=== PATIENT | female | born 1950 | race Caucasian/White ===

== ENCOUNTER 2020-07-20 17:36 | Outpatient (REF) | payer MEDICARE, SELFPAY | END 2020-07-20 17:37 | disposition home or self-care (01) | LOC: HO.LAB 17:36 | PROVIDERS: Visit Provider Internal Medicine | DX: Z20.828 Contact with and (suspected) exposure to other viral communicable diseases (principal) | CPT/HCPCS: C9803; U0003 ==

== ENCOUNTER 2020-08-03 15:44 | Outpatient (REF) | payer MEDICARE, SELFPAY | END 2020-08-03 15:45 | disposition home or self-care (01) | LOC: HO.LAB 15:44 | PROVIDERS: PCP Internal Medicine; Visit Provider Internal Medicine | DX: Z20.828 Contact with and (suspected) exposure to other viral communicable diseases (principal) | CPT/HCPCS: C9803; U0003 ==

== ENCOUNTER 2020-10-24 13:53 | Outpatient (REF) | payer MEDICARE, SELFPAY ==
--- NOTE | ~2020-10-24 | MM_ITS ---
EXAMINATION: MM SCREENING DIGITAL BREAST TOMOSYNTHESIS, BILATERAL CLINICAL INFORMATION: Screening. Asymptomatic. The lifetime risk of breast cancer based on the Tyrer-Cuzick Model is 3%. COMPARISON: Mammography: 05/11/2019, 04/15/2018, 04/08/2017 TECHNIQUE: Digital breast tomosynthesis is performed in both the craniocaudal and mediolateral oblique views along with computer-aided detection (CAD). Synthesized 2D images are generated from the tomosynthesis. FINDINGS: There are scattered areas of fibroglandular density (ACR BI-RADS breast composition Category b). Fibronodular parenchymal pattern is similar to prior exams. There is no developing density. There is no interval mass or architectural abnormality or abnormal calcifications. No significant changes from prior studies. MM/MM tomosynthesis screening BI IMPRESSION: No mammographic evidence of malignancy. ASSESSMENT: BI-RADS 1: Negative RECOMMENDATION: Routine annual mammography screening. This patient's information was entered into a reminder system with a target due date for their next mammogram.
== END 2020-10-24 13:54 | disposition home or self-care (01) ==
LOC: HO.MAMMO 13:53
PROVIDERS: Visit Provider Internal Medicine
DX: Z12.31 Encounter for screening mammogram for malignant neoplasm of breast (principal)
CPT/HCPCS: 77063; 77067

== ENCOUNTER 2020-12-05 09:37 | Day surgery (SDC) | payer MEDICARE, SELFPAY ==
--- NOTE | 2020-12-04 13:15 | HO.ANESPROP2 ---
Documented by User: Josefa Lacey 12/04/20 13:15 HPI - Anesthesia Eval Consult details Narrative: 69yo F for Upper Endoscopy [facility] Past Medical History Medical History Hill esophagus Depression Diverticulosis Elevated cholesterol HTN (hypertension) Osteoporosis Spastic bladder Surgical History Surgical History History of esophagogastroduodenoscopy (EGD) Hx of colonoscopy Hx of tubal ligation Social History Social History Smoking Status: Never smoker Use of substances other than those prescribed or required for medical reasons: No Advance Directives: No Advance Directives Information Provided: Yes Meds Allergies Allergy/AdvReac Type Severity Reaction Status Date / Time No Known Allergies Allergy Unverified 06/01/20 14:51 Home Medications Medication Instructions Recorded Confirmed Last Taken Type alendronate 1 tab PO QWEEK 12/04/20 12/04/20 Unknown History atorvastatin 1 tab PO BEDTIME 12/04/20 12/04/20 Unknown History ergocalciferol (vitamin D2) 1 cap PO QWEEK 12/04/20 12/04/20 Unknown History lisinopril 1 tab PO DAILY 12/04/20 12/04/20 Unknown History omeprazole 1 cap PO BID 12/04/20 12/04/20 Unknown History Exam Exam Date and Time: December 04, 2020 1315 Height,Weight and Vital Signs: Height 5 ft 1 in Weight 72.121 kg Assessment and Plan Assessment Anesthesia Assessment: Chart Reviewed Documented by User: Laura Albarran 12/05/20 11:09 [facility] Past Medical History Medical History Hill esophagus Depression Diverticulosis Elevated cholesterol HTN (hypertension) Osteoporosis Spastic bladder Family History Family history of problems with anesthesia: No Surgical History Surgical History History of esophagogastroduodenoscopy (EGD) Hx of colonoscopy Hx of tubal ligation History of Problems with Anesthesia: No Social History Social History Smoking Status: Never smoker Use of substances other than those prescribed or required for medical reasons: No Advance Directives: No Advance Directives Information Provided: Yes Meds Allergies Allergy/AdvReac Type Severity Reaction Status Date / Time No Known Allergies Allergy Unverified 06/01/20 14:51 Home Medications Medication Instructions Recorded Confirmed Last Taken Type alendronate 1 tab PO QWEEK 12/04/20 12/04/20 Unknown History atorvastatin 1 tab PO BEDTIME 12/04/20 12/04/20 Unknown History ergocalciferol (vitamin D2) 1 cap PO QWEEK 12/04/20 12/04/20 Unknown History lisinopril 1 tab PO DAILY 12/04/20 12/04/20 Unknown History omeprazole 1 cap PO BID 12/04/20 12/04/20 Unknown History Exam Height,Weight and Vital Signs: Vital Signs Temp Pulse Resp BP Pulse Ox 12/05/20 11:04 97.3 F 78 18 152/69 H 96 Airway Mallampati Class: II TM Dist: >3cm Neck ROM: Full Loose/Missing/Broken Teeth: Yes (Missing 1 tooth.) Heart: RRR Lungs: CTAB Assessment and Plan Assessment Anesthesia Assessment: Anesthesia Plan Discussed and Chart Reviewed Final Anesthetic Review NPO: Yes ASA Class: II Final Preanesthetic Review: No Changes in Pt Med Stat, Meds/Allgs Chart Reviewed, Consent Obtained/Reviewed and Anes Risks/Benef Reviewed Patient Risk: Low Procedure Risk: Low Assessment/Block/Sedation in SS: Assess/Block/Sedation-SS Anesthetic Plan Anesthetic Plan: MAC: Disposition: Standard PACU
[2020-12-05 11:04] VITALS: BP 152/69; PULSE 78; RESP 18; TEMP 36.3; O2SAT 96
[2020-12-05] MEDS: Lactated Ringers 1,000 ML 100 ML IVCONT (11:39)
--- NOTE | 2020-12-05 11:44 | MHC.SHP ---
Pre-Procedural Eval Section A The patient is an INPATIENT: No Changes since office visit: No Cold of Flu in the past 2 weeks, No New Medical Problems, No Changes in Medication and No Patient answered all questions The History & Physical has been completed within 30 days and I have reviewed it.: Yes Section B Chief Complaint: barretts Allergies: Allergies Allergy/AdvReac Type Severity Reaction Status Date / Time No Known Allergies Allergy Unverified 06/01/20 14:51 Plan I have reviewed the history and physical and performed a pertinent physical examination on my patient. No changes have occurred unless specified.
[2020-12-05 12:13] VITALS: BP 115/44; PULSE 72; RESP 14; TEMP 36.9; O2SAT 97
--- NOTE | 2020-12-05 12:13 | PM.OP ---
Brief Operative Note Date of Service: 12/05/20 Pre-op diagnosis: barretts Post-op diagnosis: same Procedure: egd Surgeon: Jasiel Coburn Estimated blood loss (mL): 3 Pathology: other (esophagus bxs) Condition: stable Disposition: PACU
[2020-12-05 12:28] VITALS: BP 137/72; PULSE 74; RESP 18; O2SAT 96
--- NOTE | 2020-12-05 12:50 | OP_ITS ---
SURGEON: Jasiel Coburn MD INDICATIONS: Hill's esophagus. PREOPERATIVE DIAGNOSIS: POSTOPERATIVE DIAGNOSIS: PROCEDURE PERFORMED: Upper endoscopy with biopsy. ESTIMATED BLOOD LOSS: COMPLICATIONS: ANESTHESIA: ASSISTANTS: SPECIMENS: MEDICATIONS: Monitored anesthesia care. DESCRIPTION OF PROCEDURE: History and physical performed. The risks and benefits of the procedure were explained to the patient. Informed consent was obtained and the patient was placed in the left lateral decubitus position. The Olympus video gastroscope was introduced into the esophagus, stomach, and duodenum. Examination was performed and the scope was removed. She tolerated the procedure well and was taken to recovery area in stable condition. FINDINGS: ESOPHAGUS: The esophagus showed a 2 cm length of Hill's esophagus without any raised lesions or ulcerated areas. Biopsies were obtained from the esophagus in all 4 quadrants at 32 cm and at 30 cm. There was a small hiatal hernia. STOMACH: The stomach showed no evidence of masses, ulcers, or polyps. DUODENUM: The bulb and second portion were normal. IMPRESSION: Hill's esophagus. RECOMMENDATION: Follow up the biopsy results. MD EMELY Smith/MODL / [id number]
== END 2020-12-05 12:56 | disposition home or self-care (01) ==
PROVIDERS: PCP Internal Medicine; Visit Provider Internal Medicine Gastroenterology
PROC: 0DJ08ZZ Inspection of Upper Intestinal Tract, Via Natural or Artificial Opening Endoscopic (ICD-10-PCS; CPT 43235; principal; 2020-12-05 10:50)
DX: K22.70 Barrett's esophagus without dysplasia (principal); K21.9 Gastro-esophageal reflux disease without esophagitis; K44.9 Diaphragmatic hernia without obstruction or gangrene; I10 Essential (primary) hypertension; M81.0 Age-related osteoporosis without current pathological fracture; Z79.899 Other long term (current) drug therapy
CPT/HCPCS: 43239; 88305

== ENCOUNTER 2021-06-07 08:31 | Outpatient (REF) | payer MEDICARE, SELFPAY ==
--- NOTE | ~2021-06-07 | MM_ITS ---
EXAMINATION: BONE DENSITOMETRY CLINICAL INDICATION: Vitamin D deficiency. Other disorder of bone. COMPARISON: Previous BD dated 10/23/2018 and baseline BD dated 08/18/2007. TECHNIQUE: Using a [employer] DXA System (software version: 13.1) manufactured by [employer], dual-energy x-ray absorptiometry was performed of the lumbar spine and left hip. The images are of good technical quality. Summary results are attached. FINDINGS: AP SPINE L1-L4: Current: BMD 0.952 g/cm2, Z-score -0.5, T-score -1.9, osteopenia, 3.8% increase from previous, 0.5% decrease from baseline (<5% change is not significant). Prior: BMD 0.917 g/cm2. Baseline: BMD 0.957 g/cm2. LEFT FEMUR, NECK: Current: BMD 0.963 g/cm2, Z-score 1.0, T-score -0.5, normal. Prior: BMD 0.946 g/cm2. Baseline: BMD 0.978 g/cm2. LEFT FEMUR, TOTAL: Current: BMD 1.008 g/cm2, Z-score 1.4, T-score 0.0, normal, 1.9% increase from previous, 0.2% increase from baseline (<5% change is not significant). Prior: BMD 0.989 g/cm2. Baseline: BMD 1.006 g/cm2. IDENTIFIED RISK FACTORS: Osteoporosis, renal, thiazide, menopause. HISTORY OF FRACTURE: None listed. MEDICATIONS: Vitamin D. MM/XR DEXA axial skeleton IMPRESSION: 1. DIAGNOSIS: Osteopenia based on the lowest T-score value of -1.9 in the lumbar spine applying World Health Organization criteria. 2. 10-YEAR FRACTURE RISK PREDICTION, FRAX: Major osteoporotic fracture (clinical spine, forearm, hip or shoulder) 4.4%. Hip fracture 0.4%. 3. Treatment Recommendations: NOF guidelines recommend consideration for treatment in postmenopausal women and men age 50 and older presenting with the following: -A hip or vertebral (clinical or morphometric) fracture. -T-score less than or equal to -2.5 at the femoral neck or spine after appropriate evaluation to exclude secondary causes. -Low bone mass at the hip or spine and a 10-year fracture probability by FRAX of greater than or equal to 3% for hip fracture or greater than or equal to 20% for major osteoporotic fracture based on the [place] adapted WHO algorithm. 4. Other Recommendations: All treatment decisions require clinical judgment and consideration of individual patient factors, including patient preferences, comorbidities, previous drug use, risk factors not captured in the FRAX model (e.g. frailty, falls, vitamin D deficiency, increased bone turnover, interval significant decline in bone density) and possible under or overestimation of fracture risk by FRAX. Additional medical evaluation for secondary cause of low bone mineral density may be appropriate. FUTURE SCAN RECOMMENDATION: People with diagnosed cases of osteoporosis or at high risk for fracture should have regular bone mineral density tests. For patients eligible for Medicare, routine testing is allowed once every 2 years. The testing frequency can be increased to one year for patients who have rapidly progressing disease, those who are receiving or discontinuing medical therapy to restore bone mass, or have additional risk factors.
== END 2021-06-07 08:32 | disposition home or self-care (01) ==
LOC: HO.MAMMO 08:31
PROVIDERS: PCP Internal Medicine; Visit Provider Internal Medicine
DX: Z13.820 Encounter for screening for osteoporosis (principal); M85.80 Other specified disorders of bone density and structure, unspecified site; E55.9 Vitamin D deficiency, unspecified; Z78.0 Asymptomatic menopausal state; Z79.899 Other long term (current) drug therapy
CPT/HCPCS: 77080

== ENCOUNTER 2021-11-07 11:54 | Outpatient (REF) | payer MEDICARE, SELFPAY ==
--- NOTE | ~2021-11-07 | MM_ITS ---
EXAMINATION: MM SCREENING DIGITAL BREAST TOMOSYNTHESIS, BILATERAL CLINICAL INFORMATION: Screening. Asymptomatic. The lifetime risk of breast cancer based on the Tyrer-Cuzick Model is 3%. COMPARISON: Mammography: 10/24/2020, 05/11/2019, 04/15/2018 TECHNIQUE: Digital breast tomosynthesis is performed in both the craniocaudal and mediolateral oblique views along with computer-aided detection (CAD). Synthesized 2D images are generated from the tomosynthesis. FINDINGS: The breasts are heterogeneously dense, which may obscure small masses (ACR BI-RADS breast composition Category c). There are no significant masses, abnormal calcifications, or other abnormalities. Breast tissue composition borders on average fibroglandular. Parenchymal pattern is similar to prior studies. No developing density or interval architectural abnormality. No significant changes. MM/MM tomosynthesis screening BI IMPRESSION: No mammographic evidence of malignancy. ASSESSMENT: BI-RADS 1: Negative RECOMMENDATION: Routine annual mammography screening. This patient's information was entered into a reminder system with a target due date for their next mammogram.
== END 2021-11-07 11:55 | disposition home or self-care (01) ==
LOC: HO.MAMMO 11:54
PROVIDERS: PCP Internal Medicine; Visit Provider Internal Medicine
DX: Z12.31 Encounter for screening mammogram for malignant neoplasm of breast (principal)
CPT/HCPCS: 77063; 77067

== ENCOUNTER 2022-11-11 08:29 | Outpatient (REF) | payer MEDICARE, SELFPAY ==
--- NOTE | ~2022-11-11 | MM_ITS ---
EXAMINATION: MM SCREENING DIGITAL BREAST TOMOSYNTHESIS, BILATERAL CLINICAL INFORMATION: Screening. Asymptomatic. The lifetime risk of breast cancer based on the Tyrer-Cuzick Model is 4%. COMPARISON: Mammography: 11/07/2021, 10/24/2020, 05/11/2019, 04/15/2018, 04/08/2017 TECHNIQUE: Digital breast tomosynthesis is performed in both the craniocaudal and mediolateral oblique views along with computer-aided detection (CAD). Synthesized 2D images are generated from the tomosynthesis. FINDINGS: The breasts are heterogeneously dense, which may obscure small masses (ACR BI-RADS breast composition Category c). No architectural abnormality or developing density or significant change from prior studies. Again, there is a 1 cm smooth benign oval asymmetry central inner right breast with mixed fibroglandular and fatty attenuation similar to multiple prior studies, likely chronic hamartoma. There are no significant masses, abnormal calcifications, or other abnormalities. There are scattered round and some vascular calcifications. No significant changes. MM/MM tomosynthesis screening BI IMPRESSION: No mammographic evidence of malignancy. ASSESSMENT: BI-RADS 2: Benign RECOMMENDATION: Routine annual mammography screening. This patient's information was entered into a reminder system with a target due date for their next mammogram.
== END 2022-11-11 08:30 | disposition home or self-care (01) ==
LOC: HO.MAMMO 08:29
PROVIDERS: PCP Internal Medicine; Visit Provider Internal Medicine
DX: Z12.31 Encounter for screening mammogram for malignant neoplasm of breast (principal)
CPT/HCPCS: 77063; 77067

== ENCOUNTER 2023-10-27 09:07 | Outpatient (REF) | payer MEDICARE, SELFPAY ==
[2023-10-27 12:42] LABS: Microalbum/Creatinine Ratio Ur 11.4 ug/mg cr (<30)
[2023-10-27 12:48] LABS: Anion Gap 15 (12-20); Blood Urea Nitrogen 15 mg/dL (9-16); Calcium 9.4 mg/dL (8.4-10.2); Carbon Dioxide 25 mmol/L (22-29); Chloride 106 mmol/L (96-108); Cholesterol 174 mg/dL (<200); Estimated Glomerular Filt Rate > 60; Glucose Random 107 mg/dL (60-115); HDL Cholesterol 48 mg/dL (>40); LDL Cholesterol Calculated 94 mg/dL (<100); Potassium 3.8 mmol/L (3.3-5.1); Sodium 142 mmol/L (135-145); TSH reflex Free T4 1.48 uIU/mL (0.32-4.0); Triglycerides 163 mg/dL (<150); Vitamin D 25-OH Total 25.3 ng/mL (>30)
[2023-10-27 13:17] LABS: Reflex LDLD? No
== END 2023-10-27 09:08 | disposition home or self-care (01) ==
LOC: HO.HHCL 09:07
PROVIDERS: Visit Provider Internal Medicine
DX: I10 Essential (primary) hypertension (principal); R73.01 Impaired fasting glucose
CPT/HCPCS: 36415; 80048; 80061; 82043; 82306; 82570; 84443

== ENCOUNTER 2023-11-18 07:38 | Outpatient (REF) | payer MEDICARE, SELFPAY ==
--- NOTE | ~2023-11-18 | MM_ITS ---
EXAMINATION: MM SCREENING DIGITAL BREAST TOMOSYNTHESIS, BILATERAL CLINICAL INFORMATION: Screening. Asymptomatic. COMPARISON: Mammography: 11/11/2022, 11/07/2021, 10/24/2020, 05/11/2019, 04/15/2018, 04/08/2017. TECHNIQUE: Digital breast tomosynthesis is performed in both the craniocaudal and mediolateral oblique views along with computer-aided detection (CAD). Synthesized 2D images are generated from the tomosynthesis. FINDINGS: The breasts are heterogeneously dense, which may obscure small masses (ACR BI-RADS breast composition Category c). Parenchyma is heterogeneously dense and again somewhat nodular. This is unchanged. Again there is an approximate 1 cm smooth circumscribed benign oval mass central inner right breast consistent with a hamartoma with both soft tissue and fatty attenuation. This is stable and benign. There are scattered rounded benign and vascular calcifications. There is been no aggressive change. There are no masses, regions of architectural distortion, or suspicious grouped calcifications in either breast. There is no skin or axillary abnormality. MM/MM tomosynthesis screening BI IMPRESSION: No mammographic evidence of malignancy. Stable benign findings. ASSESSMENT: BI-RADS BI-RADS 2 - Benign Findings RECOMMENDATION: Routine annual mammography screening. 1 year F/U This examination should not preclude the clinical evaluation of a suspicious palpable abnormality. This patient's information was entered into a reminder system with a target due date for their next mammogram.
== END 2023-11-18 07:39 | disposition home or self-care (01) ==
LOC: HO.MAMMO 07:38
PROVIDERS: PCP Internal Medicine; Visit Provider Internal Medicine
DX: Z12.31 Encounter for screening mammogram for malignant neoplasm of breast (principal)
CPT/HCPCS: 77063; 77067

== ENCOUNTER → 2023-11-18 08:00 | Outpatient (BNV) | payer MEDICARE, SELFPAY | PROVIDERS: PCP Internal Medicine; Visit Provider Radiology Diagnostic Radiology | DX: Z12.31 Encounter for screening mammogram for malignant neoplasm of breast (principal) | CPT/HCPCS: 77063; 77067 ==

== ENCOUNTER 2023-11-25 07:52 | Outpatient (REF) | payer MEDICARE, SELFPAY ==
--- NOTE | ~2023-11-25 | MM_ITS ---
EXAMINATION: BONE DENSITOMETRY CLINICAL INDICATION: Osteoporosis. COMPARISON: Previous BD dated 06/07/2021 and baseline BD dated 08/18/2007. TECHNIQUE: Using a [employer] DXA System (software version: 13.1) manufactured by [employer], dual-energy x-ray absorptiometry was performed of the lumbar spine and left hip. The images are of good technical quality. Summary results are attached. FINDINGS: LEFT FEMUR, NECK: Current: BMD 0.894 g/cm2, Z-score 0.8, T-score -1.0, normal. Prior: BMD 0.963 g/cm2. Baseline: BMD 0.978 g/cm2. LEFT FEMUR, TOTAL: Current: BMD 1.010 g/cm2, Z-score 1.6, T-score 0.0, normal, 0.2% increase from previous, 0.4% increase from baseline (<5% change is not significant). Prior: BMD 1.008 g/cm2. Baseline: BMD 1.006 g/cm2. AP SPINE L1-L4: Current: BMD 0.977 g/cm2, Z-score 0.0, T-score -1.7, osteopenia, 2.6% increase from previous, 2.1% increase from baseline (<5% change is not significant). Prior: BMD 0.952 g/cm2. Baseline: BMD 0.957 g/cm2. IDENTIFIED RISK FACTORS: Menopause. HISTORY OF FRACTURE: None listed. MEDICATIONS: Vitamin D, bisphosphonate. MM/XR DEXA axial skeleton IMPRESSION: 1. DIAGNOSIS: Osteopenia based on the lowest T-score value of -1.7 in the lumbar spine applying World Health Organization criteria. 2. 10-YEAR FRACTURE RISK PREDICTION, FRAX: Not performed in this patient on estrogen or bone building treatments. 3. Treatment Recommendations: NOF guidelines recommend consideration for treatment in postmenopausal women and men age 50 and older presenting with the following: -A hip or vertebral (clinical or morphometric) fracture. -T-score less than or equal to -2.5 at the femoral neck or spine after appropriate evaluation to exclude secondary causes. -Low bone mass at the hip or spine and a 10-year fracture probability by FRAX of greater than or equal to 3% for hip fracture or greater than or equal to 20% for major osteoporotic fracture based on the [place] adapted WHO algorithm. 4. Other Recommendations: All treatment decisions require clinical judgment and consideration of individual patient factors, including patient preferences, comorbidities, previous drug use, risk factors not captured in the FRAX model (e.g. frailty, falls, vitamin D deficiency, increased bone turnover, interval significant decline in bone density) and possible under or overestimation of fracture risk by FRAX. Additional medical evaluation for secondary cause of low bone mineral density may be appropriate. FUTURE SCAN RECOMMENDATION: People with diagnosed cases of osteoporosis or at high risk for fracture should have regular bone mineral density tests. For patients eligible for Medicare, routine testing is allowed once every 2 years. The testing frequency can be increased to one year for patients who have rapidly progressing disease, those who are receiving or discontinuing medical therapy to restore bone mass, or have additional risk factors.
== END 2023-11-25 07:53 | disposition home or self-care (01) ==
LOC: HO.MAMMO 07:52
PROVIDERS: PCP Internal Medicine; Visit Provider Internal Medicine
DX: Z13.820 Encounter for screening for osteoporosis (principal); M81.0 Age-related osteoporosis without current pathological fracture; Z78.0 Asymptomatic menopausal state
CPT/HCPCS: 77080

== ENCOUNTER 2024-03-01 09:23 | Outpatient (REF) | payer MEDICARE, SELFPAY ==
[2024-03-01 11:42] LABS: Anion Gap 11 (12-20); Blood Urea Nitrogen 20 mg/dL (9-16); Calcium 8.8 mg/dL (8.4-10.2); Carbon Dioxide 27 mmol/L (22-29); Chloride 107 mmol/L (96-108); Estimated Glomerular Filt Rate > 60; Glucose Random 110 mg/dL (60-115); Potassium 3.8 mmol/L (3.3-5.1); Sodium 141 mmol/L (135-145)
== END 2024-03-01 09:24 | disposition home or self-care (01) ==
LOC: HO.HHCL 09:23
PROVIDERS: Visit Provider Internal Medicine
DX: I10 Essential (primary) hypertension (principal)
CPT/HCPCS: 36415; 80048

== ENCOUNTER 2024-11-03 08:05 | Outpatient (REF) | payer MEDICARE, SELFPAY ==
--- OUTSIDE RECORDS SUMMARY | 2024-11-03 08:12 | XMS_ITS | Encounter Summary ---
Author Organization [employer] [facility] Address [address] [place] [address] Care Team Providers Care Structural Steel Painter Name Role Phone Kathy Pryor MD Primary Care Provider + Encounter Details Date Type Department Care Team (Latest Contact Info) Description 11/24/2019 Abstract [facility] CONVERSIONS Dental, Provider, DDS Social History Tobacco Use Types Packs/Day Years Used Date Smoking Tobacco: Never Assessed Comments Unknown Sex and Gender Information Value Date Recorded Sex Assigned at Female 07/15/2022 10:16 AM EDT Legal Sex Female 10:16 AM EDT Gender Identity Female 07/15/2022 10:16 AM EDT Sexual Orientation Choose not to disclose 2021 10:16 AM EDT documented as of this encounter Plan of Treatment Upcoming Encounters Date Type Department Care Team (Late st Contact Info) Description 11/17/2024 11:30 AM EST Office Visit [facility] MEDICINE [address] [place] [address] Kathy Pryor MD [address] [place] [address] documented as of this encounter Visit Diagnoses Not on filedocumented in this encounter Care Teams Structural Steel Painter Relationship Specialty Start Date End Date Kathy Pryor MD [address] [place] [address] PCP - General Family Medicine 06/28/16 documented as of this encounter
--- OUTSIDE RECORDS SUMMARY | 2024-11-03 08:13 | XMS_ITS | Encounter Summary ---
Author Organization [employer] [facility] Address [address] [place] [address] Care Team Providers Care Business Line Controller Name Role Phone Kathy Pryor MD Primary Care Provider + Encounter Details Date Type Department Care Team (Late st Contact Info) Description 09/26/2022 Orders Only [facility] MEDICINE [address] [place] [id number] Lenora Norman LPN Social History Tobacco Use Types Packs/Day Years [...] 11/17/2024 11:30 AM EST Office Visit [facility] MEDICINE [address] [place] [address] Kathy Pryor MD [address] [place] [id number] documented as of this encounter Visit Diagnoses Not on filedocumented in this encounter Care Teams Business Line Controller Relationship Specialty Start Date End Date Kathy Pryor MD [address] [place] [phone] PCP - General Family Medicine 06/28/16 documented as of this encounter
--- OUTSIDE RECORDS SUMMARY | 2024-11-03 08:13 | XMS_ITS ---
Author Organization [facility] Address [address] [place] [address] Care Team Providers Care Antique Collector Name Role Phone Konstantin CHRISTINA, Kathy Primary Care Provider Jasiel Tejeda Jr Unavailable Encounters Encounter Location Date Provider Diagnosis [facility] [address] [place] [address] 10/18/2024 Jasiel Coburn Jr PLAN OF TREATMENT Next Appt Details Provider Name:Jasiel palacio Jr, 11/24/2024 11:00:00 AM, [address] [place] [address], [address], [place], [address], Provider Name:Jasiel palacio Jr, 01/31/2025 11:20:00 AM, [address] [place] [address], [address], [place], [address],
--- OUTSIDE RECORDS SUMMARY | 2024-11-03 08:13 | XMS_ITS ---
Author Organization [facility] Address [address] [place] [address] Care Team Providers Care Hearing Aid Fitter Name Role Phone Konstantin CHRISTINA, Kathy Primary Care Provider Unavail colin Coburn Jr, Jasiel Unavailable [phone] REASON FOR VISIT Patient presents today for toussaint's esophagus Encounters Encounter Location Date Provider Diagnosis [facility] [address] [place] [address] 07/19/2024 Jasiel Coburn Jr PLAN OF TREATMENT Next Appt Details Provider Name:Jasiel palacio Jr, 11/24/2024 11:00:00 AM, [address] [place] [address], [address], [place], [address], Provider Name:Jasiel palacio Jr, 01/31/2025 11:20:00 AM, [address] [place] [address], [address], [place], [address],
--- OUTSIDE RECORDS SUMMARY | 2024-11-03 08:13 | XMS_ITS | Encounter Summary ---
Author Organization [employer] Address [address] [facility] [address] h [address] [place] [phone] Care Team Providers Care Electronic Specialist Name Role Phone Kathy Pryor MD Primary Care Provider + Encounter Details Date Type Department Care Team (Late Contact Info) Description 03/05/2023 Abstract [facility] [address] [place] [address] [phone] Kathy Pryor MD [address] [place] [address] [phone] Social History Tobacco Use Types Packs/Day Years Used Date Smoking Tobacco: Never Smokeless Tobacco: Never Alcohol Use Standard Drinks/Week Comments Never 0 (1 standard drink = 0.6 oz pur e alcohol) Depression Answer Date Recorded Patient Health Questionnaire-2 Score 0 01/03/2023 Comments Unknown Sex and Gender Information Value Date Recorded Sex Assigned at Female 07/15/2022 10:16 AM EDT Legal Sex Female 10:16 AM EDT Gender Identity Female 07/15/2022 10:16 AM EDT Sexual Orientation Choose not to disclose 2021 10:16 AM EDT COVID-19 Exposure Response Date Recorded In the last 10 days, have yo u been in contact with someone who was confirmed or suspected to have Coronavirus/COVID-19? No / Unsure 02/06/2023 10:44 AM EDT documented as of this encounter Plan of Treatment Upcoming Encounters Date Type Department Care Team (Late Contact Info) Description 11/17/2024 11:30 AM EST Office Visit [facility] [address] [place] [address] [phone] Kathy Pryor MD [address] [place], [place] [phone] documented as of this encounter Procedures Procedure Name Priority Date/Time Associated Diagnosis Comments HM COLONOSCOPY Routine 06/03/2008 10:00 AM EDT documented in this encounter Results * Hm Colonoscopy (06/03/2008 10:00 AM EDT) Colonoscopy Normal Normal Narrative Janice Albarado - 06/03/2008 10:00 AM EDT Recommended 10 year follow up us Historical Provider [facility] MAINTENANCE Edited Result - Final documented in this encounter Visit Diagnoses Not on filedocumented in this encounter Care Teams Electronic Specialist Relationship Specialty Start Date End Date Kathy Pryor MD [address] [place] [phone] PCP - General Family Medicine 06/28/16 documented as of this encounter
--- OUTSIDE RECORDS SUMMARY | 2024-11-03 08:13 | XMS_ITS | Encounter Summary ---
Author Organization [employer] Address [address] [facility] [address] [place] [address] Care Team Providers Care Brand Development Manager Name Role Phone Kathy Pryor MD Primary Care Provider + Encounter Details Date Type Department Care Team (Late st Contact Info) Description 01/28/2024 Orders Only [facility] [address] [place], [place] [phone] ProviderSebastian MD Social History Tobacco Use Types Packs/Day Years Used Date Smoking Tobacco: Never Smokeless Tobacco: Never Alcohol Use Standard Drinks/Week Comments Never 0 (1 standard drink = 0.6 oz pur e alcohol) Housing Stability Answer Date Recorded What is your housing situation today? I have rita jacinto 07/26/[address] you li ve. Do you have problems with any of the following? None of the above 07/26/2023 Food Insecurity Answer Date Recorded Within the past 12 months, y ou worried that your food would run out before you got money to buy more: Never True 07/26/2023 Within the past 12 months,th e food you bought just didn't last and you didn't have enough money to get more: Never True 07/2023 Transportation Answer Date Recorded In the past 12 months, has l ack of transportation kept you from medical appts, meetings, work or from getting things needed for daily living? No 07/26/2023 Utilities Answer Date Recorded In the past 12 months, has t he electric, gas, oil or water company threatened to shut off services in your home? No 07/26/2023 Depression Answer Date Recorded Patient Health Questionnaire-2 [...] Description 11/17/2024 11:30 AM EST Office Visit [facility] [address] [place] [address] Kathy Pryor MD [address] [place] [address] documented as of this encounter Procedures Procedure Name Priority Date/Time Associated Diagnosis Comments HM COLONOSCOPY Routine 11/13/2018 7:12 AM EST documented in this encounter Results * Hm Colonoscopy (11/13/2018 7:12 AM EST) Historical Provider HEALTH MAINTENANCE Final Result documented in this encounter Visit Diagnoses Not on filedocumented in this encounter Care Teams Brand Development Manager Relationship Specialty Start Date End Date Kathy Pryor MD [address] [place] [phone] PCP - General Family Medicine 06/28/16 documented as of this encounter
--- OUTSIDE RECORDS SUMMARY | 2024-11-03 08:13 | XMS_ITS | Clinical Summary ---
Author Organization [employer] Address [address] [facility] 7t [place] [address] Care Team Providers Care Mobile Web Application Developer Name Role Phone Kathy Pryor MD Primary Care Provider + Allergies No known active allergies Medications Calcium Carb-Cholecalcife rol (Oyster Shell Calcium w/D) 500-5 MG-MCG tabletIndications :Age related osteoporosis, unspecified pathological fracture presence TAKE 1 TABLET BY MOUTH TWICE DAILY 180 tablet 1 4 Active lisinopril 40 MG tabletIndications :Primary hypertension TAKE 1 TABLET BY MOUTH EVERY DAY 90 tablet 3 4 Active atorvastatin (Lipitor) 40 MG tablet TAKE 1 TABLET BY MOUTH AT BEDTIME 90 tablet 3 4 Active alendronate (Fosamax) 70 MG tablet TAKE 1 TABLET BY MOUTH EVERY WEEK IN THE MORNING AND 30 MINUTES BEFORE FIRST FOOD OR BEVERAGE OR MEDICATION OF DAY 12 tablet 3 4 Active omeprazole (PriLOSEC) [address] capsuleIndication s:Gastroesophagea l reflux disease, unspecified whether esophagitis present TAKE 1 CAPSULE BY MOUTH TWICE DAILY 180 capsule 1 5 Active Active Problems Problem Noted Date Diagnosed Date Grief 09/25/2023 Assessment & Plan (11/06/2023 11:31 AM EST): Coping well, has support of family and friends in the community She's able to reach out for safety Assessment & Plan (09/25/2023 12:10 PM EST): Discussed about coping mechanics including distractions, exercise, healthy meals. She's sleeping well. She has team number to call PRN FU 6 wks Electrocardiogram abnormal 09/24/202309/24 Prediabetes 01/01/2023 Osteopenia 01/01/2023 Assessment & Plan (03/08/2024 10:19 AM EDT): Complete 6mo of Vit D supplementation. Advised outdoor exercsie. Continue Calcium. Check Vit D levels prior to next appt. Assessment & Plan (12/05/2023 10:46 AM EDT): Recent BMD shows improvement of osteoporosis to osteopenia Continue Vit D to complete 6 m Start calcium Counseled regarding risk of falls and fractures. Primary hypertension 01/01/2023 Assessment & Plan (03/08/2024 5:27 PM EDT): Controlled. Compliant w/meds Continue lisinopril 40mg Counseled re low salt diet/increase moderate physical activity. Check home BP BIW and prn CP/THOMAS/MEMBRENO Non smoking patient. Assessment & Plan (12/05/2023 10:45 AM EDT): Uncontrolled Increase lisinopril 40mg and fu BP in 3 m Counseled re low salt diet/increase moderate physical activity. Check home BP BIW and prn CP/THOMAS/MEMBRENO Non smoking patient. Assessment & Plan (11/06/2023 11:30 AM EST): Uncontrolled, will increase lisinopril to 20 mg and FU in 4 wks Counseled re low salt diet/increase moderate physical activity. Check home BP BIW and prn CP/THOMAS/MEMBRENO Non smoking patient. Assessment & Plan (09/25/2023 12:10 PM EST): Borderline, repeated is 160/80 Cont lisinopril for now and check BP at home twice /wk Counseled re low salt diet/increase moderate physical activity. Non smoking patient. FU 6 wks w/ labs Assessment & Plan (01/03/2023 12:28 PM EDT): Controlled, BP is at goal. Continue lisinopril 10mg and order labs Counseled re low salt diet/increase moderate physical activity. Check home BP BIW and prn CP/THOMAS/MEMBRENO Non smoking patient. FU with me in 2 months Impacted cerumen 10/12/2018 Pre-hypertension 05/03/2013 Dyslipidemia 07/14/2012 Hill's esophagus 06/17/2012 Impaired fasting glucose 06/17/2012 Assessment & Plan (09/25/2023 12:10 PM EST): Counseled re more frequent low calorie/carb meals. Check fgstk daily Encouraged physical activity as tolerated. Assessment & Plan (01/03/2023 12:27 PM EDT): A1C is at goal Continue off medications for now Counseled re more frequent low calorie/carb meals. Encouraged physical activity as tolerated. Order labs and FU with me in 2 months Declined podiatry referral Optometry evaluation up to date Chronic interstitial cystitis 06/17/2012 Vitamin D deficiency 06/17/2012 Assessment & Plan (03/08/2024 5:28 PM EDT): Complete 6mo rx, advised re outdoor exercise. Assessment & Plan (11/06/2023 11:30 AM EST): Continue vit d for the next 3 months Resolved Problems Problem Noted Date Diagnosed Date Resolved Date Osteoporosis 06/17/2012 12/05/2023 Assessment & Plan (11/06/2023 11:33 AM EST): Continue fosamax and vit d for the next 3 m Order BDD and BMP Assessment & Plan (01/03/2023 12:27 PM EDT): will obtain report of last BMD test and scheduled fu Dexascan if needed Continue fosamax + calcium for now Encounters Date Type Department Care Team Description 09/28/2024 Patient Outreach [facility] [address] [place] [address] Kathy Pryor MD Pre-visit Planning (SDOH screening negative and tobacco screening negative) 09/22/2024 Refill [facility] [address] [place] [address] Kathy Pryor MD Gastroesophageal reflux disease, unspecified whether esophagitis present from Last 3 Months Immunizations Name Administration Dates Next Due Hep B, adult 06/14/2008,02/17/2008,01/18/2008 Influenza High-dose Quadriva lent Preservative Free 06/17/2023,06/16/2022,05/17/2020 Influenza Quadrivalent Adjuvanted 06/03/2021 Influenza injectable quadriv alent IIV4 with preservative 07/08/2016 Influenza injectable quadriv alent preservative free 08/19/2018 Influenza, High Dose Seasona l, Preservative Free 06/19/2017,08/02/2015 Influenza, IIV3, injectable 08/01/2021,1 ,05/26/2018,06/04,05/30/2009,11/08/2008,07/14/2007 ,09/18/2006,10/16/2005 Influenza, Split (incl. nikkie fied surface antigen) 06/14/2013,06/17/2012 Moderna Covid-19 Vaccine 12+ 01/29/2022 Pfizer Covid-19 Vaccine 12+ Bivalent 06/17/2022 Pneumococcal Conjugate PCV 13 10/08/2016 Pneumococcal Polysaccharide PPSV23 12/05/2022 TD (adult), 2 Lf tetanus tox oid, preservative free, adsorbed 04/27/2007 Tdap 02/06/2023,02/12/2012 Zoster, Recombinant 02/06/2023,12/05/2022,2018 Family History Medical History Relation Name Comments Diabetes type II Brother Stroke Father Diabetes Mother Hypertension Mother Hypertension Sister Relation Name Status Comments Brother Father Mother Sister Social History Tobacco Use Types Packs/Day Years Used Date Smoking Tobacco: Never Smokeless Tobacco: Never Tobacco Cessation:Counseling Given: Not Answered Alcohol Use Standard Drinks/Week Comments Never 0 (1 standard drink = 0.6 oz pur e alcohol) Depression Answer Date Recorded Patient Health Questionnaire-9 Score 0 03/08/2024 Patient Health Questionnaire-9 Score 0 03/08/2024 Last PHQ-9: Questionnaire Data Not on file 0 03/08/2024 Housing Stability Answer Date Recorded What is your housing situation today? I have rita casey 03/08/[address] you li ve. Do you have problems with any of the following? None of the above 03/08/2024 Food Insecurity Answer Date Recorded Within the past 12 months, y ou worried that your food would run out before you got money to buy more: Never True 03/08/2024 Within the past 12 months,th e food you bought just didn't last and you didn't have enough money to get more: Never True Transportation Answer Date Recorded In the past 12 months, has l ack of transportation kept you from medical appts, meetings, work or from getting things needed for daily living? No 03/08/2024 Utilities Answer Date Recorded In the past 12 months, has t he electric, gas, oil or water company threatened to shut off services in your home? No 03/08/2024 Depression Answer Date Recorded Patient Health Questionnaire-2 Score 0 03/08/2024 Internet Access Answer Date Recorded Internet Access Q1 No 05/17/2024 Internet Access Q2 I do not want or need it 10/2023 Comments Unknown Sex and Gender Information Value Date Recorded Sex Assigned at Female 07/15/2022 10:16 AM EDT Legal Sex Female 10:16 AM EDT Gender Identity Female 07/15/2022 10:16 AM EDT Sexual Orientation Choose not to disclose 2021 10:16 AM EDT Last Filed Vital Signs Vital Sign Reading Time Taken Comments Blood Pressure 140/86 03/08/2024 10:05 AM EDT Pulse 84 03/08/2024 10:05 AM EDT Temperature 36.6 ??C (97.8 ??F) 03/08/2024 10:05 AM E DT Respiratory Rate 18 03/08/2024 10:05 AM EDT Oxygen Saturation 97% 12/05/2023 10:13 AM EDT Inhaled Oxygen Concentration - - Weight 71.2 kg (157 lb) 03/08/2024 10:05 AM EDT Height 157.5 cm (5' 2 ) 03/08/2024 10:05 AM EDT Body Mass Index 28.72 03/08/2024 10:05 AM EDT Plan of Treatment Upcoming Encounters Date Type Department Care Team (Late st Contact Info) Description 11/17/2024 11:30 AM EST Office Visit [facility] [address] [place] [address] Kathy Pryor MD [address] [place] [address] Health Maintenance Due Date Last Done Comments CT Colonography 1950 FIT DNA/Cologuard 1950 FIT 1950 FOBT 1950 Sigmoidoscopy 1950 Alcohol/Substance Use Screening 1961 Hepatitis C Screening 12/19/1967 COVID-19 Vaccine ( season) 2024 06/17/2022, 01/29/2022, 07/30/2021, Additional history exists Diabetes: Hemoglobin A1C 09/25/2024 024, 01/03/2023, 05/10/2020 RSV Patients and Patients Aged 60 years or older (1 - 1-dose 75+ series) 2024 Depression Screening 03/08/2025 03/08/2024, 03/08/20 24 Tobacco Screening 03/31/2025 03/31/2024 SDOH Screening 09/28/2025 09/28/2024 Mammogram 11/17/2025 11/18/2023, 10/17, 11/11/2022, Additional history exists Lipid Panel 10/27/2028 10/27/2023, 12/15, 03/20/2021 Colonoscopy 11/13/2028 11/13/2018, 06/03/2008 Colorectal Cancer Screening 11/13/2028 DTaP/Tdap/Td Vaccines (3 - Td or Tdap) 02/06/2033 02/06/2023, 02/12/2012, 04/27/2007 Hepatitis B Vaccines Completed 06/14/2008, 02/17/2008, 01/18/2008 Pneumococcal Vaccine: 50+ Years Completed 12/05/2022, 10/08/2016 Zoster Vaccines Completed 02/06/2023, 11/14, 10/12/2018 Influenza Vaccine Completed 06/09/2024, , 06/16/2022, Additional history exists HIB Vaccines Aged Out No longer eligi ble based on patient's age to complete this topic HPV Vaccines Aged Out No longer eligi ble based on patient's age to complete this topic Hepatitis A Vaccines Aged Out No long er eligible based on patient's age to complete this topic IPV Vaccines Aged Out No longer eligi ble based on patient's age to complete this topic Meningococcal Vaccine Aged Out No johnathan sundar eligible based on patient's age to complete this topic RSV under 20 months Aged Out No longe r eligible based on patient's age to complete this topic Rotavirus Vaccines Aged Out No longer eligible based on patient's age to complete this topic Procedures Procedure Name Priority Date/Time Associated Diagnosis Comments BI MAMMOGRAM SCREENING TOMOSYNTHESIS BILATERAL Routine 11/18/2023 8:05 AM EST LIPID PANEL WITH REFLEX TO DIRECT LDL Routine 10/27/2023 9:08 AM EST Essential hypertension Impaired fasting glucose POCT GLYCATED HEMOGLOBIN, TOTAL Routine 09/25/2023 2:04 PM EST Impaired fasting glucose HM COLONOSCOPY Routine 11/13/2018 7:12 AM EST from Last 3 Months or Most Recently Relevant to Health Maintenance Results * BI Mammogram Screening Tomosynthesis Bilateral (11/18/2023 8:05 AM EST) Anatomical Region Laterality Modality Breast Bilateral Mammography 11/18/2023 8:05 AM EST Narrative 12/02/2023 9:05 AM EDT ? [facility] ? [address] [facility] . ?[place] [address] ? Mammography Report ? Signed ? Patient: Ruthie Campuzano ?MR#: [id number] ?? [id number] ? : 1950 ?Acct:[id number] ? Age/Sex: 72 / F ?ADM Date: 03/05/24 ? Loc: HO.MAMMO ? Attending Dr: Kathy Pryor MD ? Ordering Physician: Kathy Pryor MD ?Results: 2Be ?? nign Findings ? Date of Service: 11/18/23 ?Follow Up: 1 Year From Orig ?? inal Mammogram ? Procedure(s): MM tomosynthesis screening BI ?? Accession Number(s): [id number] ? cc: Kathy Pryor MD ? EXAMINATION: ?? MM SCREENING DIGITAL BREAST TOMOSYNTHESIS, BILATERAL ? CLINICAL INFORMATION: ? Screening. Asymptomatic. ? COMPARISON: ?? Mammography: 11/11/2022, 11/07/2021, 10/24/2020, 05/11/2019, ?? 04/15/2018, 04/08/2017. ? TECHNIQUE: ?? Digital breast tomosynthesis is performed in both the craniocaudal and ?? mediolateral oblique views along with computer-aided detection (CAD). ?? Synthesized 2D images are generated from the tomosynthesis. ? FINDINGS: ?? The breasts are heterogeneously dense, which may obscure small masses ?? (ACR BI-RADS breast composition Category c). ? Parenchyma is heterogeneously dense and again somewhat nodular. This is ?? unchanged. Again there is an approximate 1 cm smooth circumscribed ?? benign oval mass central inner right breast consistent with a hamartoma ?? with both soft tissue and fatty attenuation. This is stable and benign. ?? There are scattered rounded benign and vascular calcifications. There ?? is been no aggressive change. There are no masses, regions of ?? architectural distortion, or suspicious grouped calcifications in ?? either breast. There is no skin or axillary abnormality. ? MM/MM tomosynthesis screening BI ?? IMPRESSION: ?? No mammographic evidence of malignancy. ? Stable benign findings. ? ASSESSMENT: ? BI-RADS BI-RADS 2 - Benign Findings ? RECOMMENDATION: ?? Routine annual mammography screening. ? 1 year F/U ? This examination should not preclude the clinical evaluation of a ?? suspicious palpable abnormality. ? This patient's information was entered into a reminder system with a ?? target due date for their next mammogram. ? Dictated By: ?Dada Mora MD ? Signed By: ?<Electronically signed by Dada Mora MD in OV> ?12/02/23 0901 ? DD/ 0805 ? TD/TT: ? Linen Supervisor: ? Procedure Note Donotmallikainterpreter, Image - 12/02/2023 [facility] [address] [place] [address] Mammography Report Signed Patient: Joe Campuzano#: [id number] : 1950Acct:[id number] Age/Sex: 72 / FADM Date: 11/18/23 Loc: HO.MAMMO Attending Dr: Kathy Pryor MD Ordering Physician: Kathy Pryor MDResults: 2Be nign Findings Date of Service: 11/18/23Follow Up: 1 Year From Orig inal Mammogram Procedure(s): MM tomosynthesis screening BI Accession Number(s): [id number] cc: Kathy Pryor MD EXAMINATION: MM SCREENING DIGITAL BREAST TOMOSYNTHESIS, BILATERAL CLINICAL INFORMATION: Screening. Asymptomatic. COMPARISON: Mammography: 11/11/2022, 11/07/2021, 10/24/2020, 05/11/2019, 04/15/2018, 04/08/2017. TECHNIQUE: Digital breast tomosynthesis is performed in both the craniocaudal and mediolateral oblique views along with computer-aided detection (CAD). Synthesized 2D images are generated from the tomosynthesis. FINDINGS: The breasts are heterogeneously dense, which may obscure small masses (ACR BI-RADS breast composition Category c). Parenchyma is heterogeneously dense and again somewhat nodular. This is unchanged. Again there is an approximate 1 cm smooth circumscribed benign oval mass central inner right breast consistent with a hamartoma with both soft tissue and fatty attenuation. This is stable and benign. There are scattered rounded benign and vascular calcifications. There is been no aggressive change. There are no masses, regions of architectural distortion, or suspicious grouped calcifications in either breast. There is no skin or axillary abnormality. MM/MM tomosynthesis screening BI IMPRESSION: No mammographic evidence of malignancy. Stable benign findings. ASSESSMENT: BI-RADS BI-RADS 2 - Benign Findings RECOMMENDATION: Routine annual mammography screening. 1 year F/U This examination should not preclude the clinical evaluation of a suspicious palpable abnormality. This patient's information was entered into a reminder system with a target due date for their next mammogram. Dictated By: Dada Mora MD Signed By: <Electronically signed by Dada Mora MD in OV> 12/02/23900 DD/ 4 TD/TT: Linen Supervisor: us Kathy Pryor MD IMG BI PROCEDURES Final Result * (ABNORMAL) Lipid Panel with Reflex to Direct LDL (10/27/2023 9:08 AM EST) Triglycerides 163(H) <150 mg/dL [facility] Comment:Desirable Triglyceri de: less than 150 mg/dLBorderline High Triglyceride 150-199 mg/dLHigh Triglyceride: 200-499 mg/dLVery High Triglyceride: greater than or equal to 5OO mg/dL Cholesterol 174 <200 mg/dL [facility] Comment:Desirable Cholestero l: less than 200 mg/dLBorderline High Cholesterol: 200-239 mg/dLHigh Cholesterol: greater than 239 mg/dL LDL Cholesterol Calculated 94 <100 mg/dL [facility] Comment:Desirable LDL: less than 100 mg/dLNear Optimal/Above Optimal LDL: 110- 129 mg/dLBorderline High LDL: 130-159 mg/dLHigh LDL: 160-189 mg/dLVery High LDL: greater than or equal to 190 mg/dL HDL Cholesterol 48 >40 mg/dL [facility] Comment:Desirable HDL: great er than 40 mg/dL Note: This HDL assay may give artificially low results in patients with liver disease. Blood 10/27/2023 9:08 AM EST 10/27/2023 11:34 AM EST Kathy Pryor MD LAB BLOOD ORDERABLES Fin al Result [facility] [address] [place] [address] [phone] * (ABNORMAL) POCT HGB A1C (09/25/2023 2:04 PM EST) Hemoglobin A1C 6.3(A) 4.0 - 6.0 % QC Media Lot # [id number] Lot# Expiration Date Blood 09/25/2023 2:04 PM EST Kathy Pryor MD POINT OF CARE TEST ENTER /EDIT ORDERABLES Final Result * Colonoscopy (11/13/2018 7:12 AM EST) Historical Provider HEALTH MAINTENANCE Final Result from Last 3 Months or Most Recently Relevant to Health Maintenance Insurance [facility] Care Teams Mobile Web Application Developer Relationship Specialty Start Date End Date Kathy Pryor MD [address] [place] [address] PCP - General Family Medicine 06/28/16
--- OUTSIDE RECORDS SUMMARY | 2024-11-03 08:13 | XMS_ITS | Encounter Summary ---
Author Organization [employer] Address [address] 7[address] [place] [address] Care Team Providers Care Spring Fitter Helper Name Role Phone Kathy Pryor MD Primary Care Provider + Encounter Details Date Type Department Care Team (Late st Contact Info) Description 01/07/2023 Orders Only [facility] MED[facility]INE [address] [place], [place] [phone] Kathy Pryor MD [address] [place], [place] [phone] Essential hypertension (Primary Dx); Prediabetes; Vitamin D deficiency Social History Tobacco Use Types Packs/Day Years [...] suspected to have Coronavirus/COVID-19? No / Unsure 01/03/2023 10:53 AM EDT documented as of this encounter Miscellaneous Notes * Result Encounter Note - Ktahy Pryro MD - 01/07/2023 2:23 PM EDT Labs on 01/08 showed mildly low vit D and mild hyperlipidemia. I will fu w her for further POC at next appt (2m). documented in this encounter Plan of Treatment Upcoming Encounters Date Type Department Care Team (Late st Contact Info) Description 11/17/2024 11:30 AM EST Office Visit [facility] [address] [place] [address] Kathy Pryor MD [address] [place], [place] [phone] documented as of this encounter Procedures Procedure Name Priority Date/Time Associated Diagnosis Comments VITAMIN D,25-OH,TOTAL,IA Routine 01/08/2023 8:01 AM EDT Vitamin D deficiency LIPID PANEL WITH REFLEX TO DIRECT LDL Routine 01/08/2023 8:01 AM EDT Essential hypertension BASIC METABOLIC PANEL Routine 01/08/2023 8:01 AM EDT Essential hypertension documented in this encounter Results * (ABNORMAL) Vitamin D, 25-Hydroxy, Total, Immunoassay (01/08/2023 8:01 AM EDT) Vitamin D,25-OH, Total, IA 26(L) 30 - 100 ng/mL [facility] Comment: Vitamin D Status ? 25-OH Vitamin D: Deficiency: ?<20 ng/mL Insufficiency: ? 20 - 29 ng/mL Optimal: ? > or = 30 ng/mL For 25-OH Vitamin D testing on patients on D2-supplementation and patients for whom quantitation of D2 and D3 fractions is required, the QuestAssureD() 25-OH VIT D, (D2,D3), LC/MS/MS is recommended: order code 95101 (patients >2yrs). See Note 1 Note 1 For additional information, please refer to http://education.Yuepu Sifang/faq/OTH669 (This link is being provided for informational/ educational purposes only.) 01/08/2023 8:01 AM EDT 01/08/2023 8:01 AM EDT Narrative [facility] - 01/08/2023 7:26 PM EDT FASTING:YES FASTING: YES Kathy Proyr MD LAB BLOOD ORDERABLES Fin al Result [facility] [address], [place] [address] [facility] [address] [place] [address] * (ABNORMAL) Lipid Panel with Reflex to Direct LDL (01/08/2023 8:01 AM EDT) Cholesterol, Total 190 <200 mg/dL [facility] HDL Cholesterol 51 > OR = 50 mg/dL [facility] Triglycerides 131 <150 mg/dL [facility] [place] [facility] LDL Cholesterol 114(H) mg/dL (calc) [facility] Comment: Reference range: <100 Desirable range <100 mg/dL for primary prevention; ?? <70 mg/dL for patients with CHD or diabetic patients with > or = 2 CHD risk factors. LDL-C is now calculated using the Dustin-Cata calculation, which is a validated novel method providing better accuracy than the Friedewald equation in the estimation of LDL-C. Dustin PITTMAN et al. ROSETTA. 2013;310(19): 8204-0829 (http://education.Yuepu Sifang/faq/NDX239) Chol/HDLC Ratio 3.7 <5.0 (calc) [facility] [place] [facility] Non-HDL Cholesterol 139(H) <130 mg/dL (calc) [facility] Comment: For patients with diabetes plus 1 major ASCVD risk factor, treating to a non-HDL-C goal of <100 mg/dL (LDL-C of <70 mg/dL) is considered a therapeutic option. 01/08/2023 8:01 AM EDT 01/08/2023 8:01 AM EDT Narrative [employer] - 01/08/2023 7:26 PM EDT FASTING:YES FASTING: YES Kathy Pryor MD LAB BLOOD ORDERABLES Fin al Result [facility] [address], [place] [address] [facility] [place] [facility] [address] [place] [address] * (ABNORMAL) Basic Metabolic Panel (01/08/2023 8:01 AM EDT) [facility] Glucose 114(H) 65 - 99 mg/dL [facility] [place] [facility] Comment: ? Fasting reference interval For someone without known diabetes, a glucose value between 100 and 125 mg/dL is consistent with prediabetes and should be confirmed with a follow-up test. Urea Nitrogen (BUN) 21 7 - 25 mg/dL [facility] [place] [facility] Creatinine, Serum 0.64 0.60 - 1.00 mg/dL [facility] eGFR 93 > OR = 60 mL/min/1 .73m2 [facility] [place] [facility] Comment: The eGFR is based on the CKD-EPI 2020 equation. To calculate the new eGFR from a previous Creatinine or Cystatin C result, go to https://www.kidney.org/professionals/ kdoqi/gfr%5Fcalculator BUN/Creatinine Ratio NOT APPLICABLE 6 - 22 (calc) [facility] Sodium 140 135 - 146 mmol/L [facility] Potassium 3.8 3.5 - 5.3 mmol/L [facility] Chloride 105 98 - 110 mmol/L [facility] Carbon Dioxide 27 20 - 32 mmol/L [facility] [place] [facility] Calcium 9.0 8.6 - 10.4 mg/dL [facility] [place] [facility] Blood Venous blood specimen / Unknown 01/08/2023 8:01 AM EDT 01/08/2023 8:01 AM EDT Narrative [facility] - 01/08/2023 7:26 PM EDT FASTING:YES FASTING: YES us Kathy Pryor MD LAB BLOOD ORDERABLES Fin al Result [facility] [address], [place] [address] [facility] [address] [place] [address] documented in this encounter Visit Diagnoses Diagnosis Essential hypertension- Primary Unspecified essential hypertension Prediabetes Other abnormal glucose Vitamin D deficiency documented in this encounter Care Teams Spring Fitter Helper Relationship Specialty Start Date End Date Kathy Pryor MD [address] [place] [phone] PCP - General Family Medicine 06/28/16 documented as of this encounter
--- OUTSIDE RECORDS SUMMARY | 2024-11-03 08:13 | XMS_ITS ---
Author Organization [facility] Address [address] [place] [address] Care Team Providers Care Fire Extinguisher Installer Name Role Phone Konstantin CHRISTINA, Kathy Primary Care Provider Unavail Jasiel Eli Jr Unavailable [phone] REASON FOR VISIT Pt no showed Encounters Encounter Location Date Provider Diagnosis [facility] [address] [place] [address] 07/19/2024 Jasiel Coburn Jr PLAN OF TREATMENT Next Appt Details Provider Name:Jasiel palacio Jr, 11/24/2024 11:00:00 AM, [address] [place] [address], [address], [place], [address], Provider Name:Jasiel palacio Jr, 01/31/2025 11:20:00 AM, [address] [place] [address], [address], [place], [address],
--- OUTSIDE RECORDS SUMMARY | 2024-11-03 08:13 | XMS_ITS | Encounter Summary ---
Author Organization [facility] Address [address] [facility] 7t [place] [address] Care Team Providers Care Recordak Operator Name Role Phone Kathy Pryor MD Primary Care Provider + Encounter Details Date Type Department Care Team (Latest Contact Info) Description 05/25/2019 Abstract [facility] CONVERSIONS Dental, Provider, DDS Social [...] Description 11/17/2024 11:30 AM EST Office Visit [facility] MEDICINE [address] [place] [address] Kathy Pryor MD [address] [place] [address] documented as of this encounter Visit Diagnoses Not on filedocumented in this encounter Care Teams Recordak Operator Relationship Specialty Start Date End Date Kathy Pryor MD [address] [place] [address] PCP - General Family Medicine 06/28/16 documented as of this encounter
--- OUTSIDE RECORDS SUMMARY | 2024-11-03 08:13 | XMS_ITS | Encounter Summary ---
Author Organization [employer] Address [address] 7[address] [place] [address] Care Team Providers Care Marble Carver Name Role Phone Kathy Pryor MD Primary Care Provider + Reason for Visit * Reason Onset Date Comments Durable Medical Equipment 02/05/2024 Encounter Details Date Type Department Care Team ([facility] st Contact Info) Description 02/05/2024 Telephone [facility] MEDICINE [address] [place], [place] [phone] Kathy Pryor MD [address] [place], [place] [phone] Durable Medical Equipment Social History Tobacco Use Types Packs/Day Years Used Date Smoking Tobacco: Never Smokeless Tobacco: Never Alcohol Use Standard Drinks/Week Comments Never 0 (1 standard drink = 0.6 oz pur e alcohol) Housing Stability Answer Date Recorded What is your housing situation today? I have rita casey 07/26/[address] you li [...] as of this encounter Miscellaneous Notes * Telephone Encounter - Waldo Toni - 02/05/2024 10:53 AM EDT Tc from pt requesting a new blood pressure monitor stating current has broken and is no longer working. If any questions you can contact pt at [phone]. documented in this encounter Plan of Treatment Upcoming Encounters Date Type Department Care Team (Late st Contact Info) Description 11/17/2024 11:30 AM EST Office Visit [facility] MEDICINE [address] [place] [address] Kathy Pryor MD [address] [place] [address] documented as of this encounter Visit Diagnoses Not on filedocumented in this encounter Care Teams Marble Carver Relationship Specialty Start Date End Date Kathy Pryor MD [address] [place] [address] PCP - General Family Medicine 06/28/16 documented as of this encounter
--- OUTSIDE RECORDS SUMMARY | 2024-11-03 08:13 | XMS_ITS | Patient Health Record ---
Author Organization [facility] Address [address] [place] [address] Care Team Providers Care Broadloom Weaver Name Role Phone Konstantin CHRISTINA, Kathy Primary Care Provider Unavail Jasiel Eli Jr Unavailable ALLERGIES No Known Allergies REASON FOR REFERRAL No Information MEDICATIONS Medication SIG (Take, Route, Frequency, Duration) Notes Start Date End Date Status Vitamin D3 1000 UNIT 1 tablet Orally Onc e a day Active Atorvastatin Calcium 40 MG 1 tablet Oral ly Once a day Active Omeprazole 20 MG 1 tablet Orally twic e a day Active Vitamin D (Ergocalciferol) Active Lisinopril Active Alendronate Sodium A ctive Ibuprofen Active IMMUNIZATIONS Vaccine Route Administration Date Status Comme nts Influenza Unknown 05/26/2018 Administered Influenza Unknown 06/28/2020 Administered Influenza Unknown 08/01/2021 Administered Influenza Unknown 06/04/2022 Administered SOCIAL HISTORY Sex Assigned At : Social History Observation Description Sex Assigned At Unknown PROBLEMS Problem Type ICD Code Onset Dates Problem Status W/U Status Risk SNOMED Code Notes Problem Colon cancer screening (Z12.11) Active confirmed 405116391 Problem 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 [address] [place] [address] 07/19/2024 Jasiel Coburn Jr [facility] [address] [place] [address] 07/19/2024 Jasiel Coburn Jr [facility] [address] [place] [phone] 10/18/2024 Jasiel Coburn Jr PLAN OF TREATMENT Future Test Test Name Order Date UPPER GI ENDOSCOPY 02/06/2012 UPPER GI ENDOSCOPY 07/21/2015 COLONOSCOPY 07/31/2018 UPPER GI ENDOSCOPY 11/29/2020 Next Appt Details Provider Name:Jasiel palacio , 11/24/2024 11:00:00 AM, [address], [address], [place], [address], Provider Name:Jasiel palacio , 01/31/2025 11:20:00 AM, [address], [address], [place], [address], Insurance Providers Payer Name Payer Address Payer Phone Subscriber Number Group Number Insured Name Patient Relationship to Insured Coverage Start Date Coverage End Date [facility] [address] [address] [place] [address] [id number] GERARD CAVAZOS Self - patient is the insured MEDICAL (GENERAL) HISTORY Medical History History ICD Code elevated cholesterol barretts esophagus last EGD, 12/03, 2 cm length of Hill's without recent lesions ulcerated areas, no dysplasia on biopsies, further EGD optional based on age spastic bladder depression hypertension osteoporosis colonoscopy 11/13/18, diverticulosis, ten- year followup 12/11 Surgical History Surgery Date(Month/Year) tubal ligation
--- OUTSIDE RECORDS SUMMARY | 2024-11-03 08:13 | XMS_ITS | Encounter Summary ---
Author Organization [facility] Address [address] [facility] 7t [place] [address] Care Team Providers Care Gasoline Dragline Operator Name Role Phone Kathy Pryor MD Primary Care Provider + Reason for Visit * Reason Comments Med Refill Encounter Details Date Type Department Care Team (Late st Contact Info) Description 10/17/2022 Refill [facility] MEDICINE [address] [place] [phone] Kathy Pryor MD [address] [place] [phone] Social History Tobacco Use Types Packs/Day Years [...] Description 11/17/2024 11:30 AM EST Office Visit [facility] MED[facility] [address] [place] [address] Kathy Pryor MD [address] [place] [phone] documented as of this encounter Visit Diagnoses Not on filedocumented in this encounter Care Teams Gasoline Dragline Operator Relationship Specialty Start Date End Date Kathy Pryor MD [address] [place] [phone] PCP - General Family Medicine 06/28/16 documented as of this encounter
[2024-11-03 12:11] LABS: Vitamin D 25-OH Total 27.3 ng/mL (>30)
== END 2024-11-03 08:06 | disposition home or self-care (01) ==
LOC: HO.HHCL 08:05
PROVIDERS: Visit Provider Internal Medicine
DX: M85.88 Other specified disorders of bone density and structure, other site (principal)
CPT/HCPCS: 36415; 82306

== ENCOUNTER 2024-11-24 07:34 | Outpatient (REF) | payer MEDICARE, SELFPAY ==
--- OUTSIDE RECORDS SUMMARY | 2024-11-24 07:39 | XMS_ITS ---
Author Organization [facility] Address [address] [place] [address] Care Team Providers Care Mobility Engineer Name Role Phone Konstantin CHRISTINA, Kathy Primary Care Provider Jasiel Tejeda Jr Encounters Encounter Location Date Provider Diagnosis [facility] [address] [place] [address] 10/18/2024 Jasiel Coburn Jr Plan Of Treatment Next Appt Details Provider Name:Jasiel palacio Jr, 11/24/2024 11:00:00 AM, [address], [address], [place], [address], Provider Name:Jasiel palacio Jr, 01/31/2025 11:20:00 AM, [address] [place] [address], [address], [place], [address], Progress Notes * GERARD GARCIADOB: [birth year] (73 yo F)Acc No.[id number]:10/18/2024 Patient:?GERARD GARCIA :1950???Age:73 Y???Sex:Female Address:[address] [place] [address] [address], [place] [address] * true * Date:? Generated for Printi ng/Falevig/eTransmitting on:?11/24/2024 07:38 AM EDT
--- OUTSIDE RECORDS SUMMARY | 2024-11-24 07:39 | XMS_ITS | Encounter Summary ---
Author Organization [employer] Address [address] 7t [place] [address] Care Team Providers Care Foster Winder Name Role Phone Kathy Pryor MD Primary Care Provider + Encounter Details Date Type Department Care Team (Latest Contact Info) Description 11/24/2019 Abstract [facility] CONVERSIONS Dental, Provider, DDS Social History Tobacco [...] as of this encounter Plan of Treatment Not on file documented as of this encounter Visit Diagnoses Not on filedocumented in this encounter Care Teams Foster Winder Relationship Specialty Start Date End Date Kathy Pryor MD [address] [place] [phone] PCP - General Family Medicine 06/28/16 documented as of this encounter
--- OUTSIDE RECORDS SUMMARY | 2024-11-24 07:39 | XMS_ITS | Encounter Summary ---
Author Organization [facility] Address [address] [facility] 7t [place] [address] Care Team Providers Care Spin Instructor Name Role Phone Kathy Pryor MD Primary Care Provider + Reason for Visit * Reason Comments Med Refill Encounter Details Date Type Department Care Team ([facility] st Contact Info) Description 10/17/2022 Refill [facility] MEDICINE [address] [place] [address] Kathy Pryor MD [address] [place], [place] [phone] Social History Tobacco Use Types Packs/Day Years [...] on filedocumented in this encounter Care Teams Spin Instructor Relationship Specialty Start Date End Date Kathy Pryor MD [address] [place], [place] [phone] PCP - General Family Medicine 06/28/16 documented as of this encounter
--- OUTSIDE RECORDS SUMMARY | 2024-11-24 07:39 | XMS_ITS | Encounter Summary ---
Author Organization [employer] Address [address] 7[address] [place] [address] Care Team Providers Care Ground Water Contractor Name Role Phone Kathy Pryor MD Primary Care Provider + Reason for Visit * Reason Comments Pre-visit Planning SDOH screening negat paige and tobacco screening negative Encounter Details Date Type Department Care Team ([facility] st Contact Info) Description 11/05/2024 Patient Outreach [facility] MEDICINE [address] [place] [address] Kathy Pryor MD [address] [place] [address] Pre-visit Planning (SDOH screening negative and tobacco screening negative) Social History Tobacco Use Types Packs/Day Years [...] AM EDT documented as of this encounter Progress Notes * Brandi Dupree - 11/05/2024 10:54 AM EST CC Brandi placed successful outbound call to patient for pre-visit planning. Patient name and confirmed. Patient confirms appt date and time, and has transportation. Biggest concern for appointment at this time is shani Patient advised to bring to appointment a photo id and insurance card. Appropriate screenings completed in anticipation of appointment. documented in this encounter Plan of Treatment Not on file documented as of this encounter Visit Diagnoses Not on filedocumented in this encounter Additional Health Concerns Assessment Noted Time PHQ-9 Depression Total Score: 0 03/08/20 10:04 AM EDT documented as of this encounter Care Teams Ground Water Contractor Relationship Specialty Start Date End Date Kathy Pryor MD [address] [place] [address] PCP - General Family Medicine 06/28/16 documented as of this encounter
--- OUTSIDE RECORDS SUMMARY | 2024-11-24 07:39 | XMS_ITS | Patient Health Record ---
Author Organization [facility] Address [address] [place] [address] Care Team Providers Care Sign Builder Name Role Phone Konstantin CHRISTINA, Kathy Primary Care Provider Unavail Jasiel Eli Jr Unavailable [phone] Allergies No Known Allergies Reason For Referral No Information Medications Medication SIG (Take, Route, Frequency, Duration) Notes Start Date End Date Status Vitamin D3 1000 UNIT 1 tablet Orally Onc e a day Active Atorvastatin Calcium 40 MG 1 tablet Oral ly Once a day Active Omeprazole 20 MG 1 tablet Orally twic e a day Active Vitamin D (Ergocalciferol) Active Lisinopril Active Alendronate Sodium A ctive Ibuprofen Active Immunizations Vaccine Route Administration Date Status Comme nts Influenza Unknown 05/26/2018 Administered Influenza Unknown 06/28/2020 Administered Influenza Unknown 08/01/2021 Administered Influenza Unknown 06/04/2022 Administered Problems Problem Type SNOMED Code ICD Code Onset Dates Problem Status W/U Status Risk Notes Problem 078530172 Colon cancer screening (Z12.11) Active confirmed Problem 972810431 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) Active confirmed Problem 715219683 Gastroesophageal reflux disease without esophagitis (K21.9) Active confirmed Encounters Encounter Location Date Provider Diagnosis [facility] [address] [place] [address] 07/19/2024 Jasiel Coburn Jr [facility] [address] [place] [phone] 10/18/2024 Jasiel Coburn Jr Plan Of Treatment Future Test Test Name Order Date UPPER GI ENDOSCOPY 02/06/2012 UPPER GI ENDOSCOPY 07/21/2015 COLONOSCOPY 07/31/2018 UPPER GI ENDOSCOPY 11/29/2020 Next Appt Details Provider Name:Jasiel palacio Jr, 11/24/2024 11:00:00 AM, [address], [address], [place], [address], Provider Name:Jasiel palacio Jr, 01/31/2025 11:20:00 AM, [address], [address], [place], [address], Insurance Providers Payer Name Payer Address Payer Phone Subscriber Number Group Number Insured Name Patient Relationship to Insured Coverage Start Date Coverage End Date [facility] [address] [address] [place] [id number] GERARD CAVAZOS Self - patient is the insured Medical (General) History Medical History History ICD Code elevated cholesterol barretts esophagus last EGD, 12/03, 2 cm length of Hill's without recent lesions ulcerated areas, no dysplasia on biopsies, further EGD optional based on age spastic bladder depression hypertension osteoporosis colonoscopy 11/13/18, diverticulosis, ten- year followup 12/11 Surgical History Surgery Date(Month/Year) tubal ligation
--- OUTSIDE RECORDS SUMMARY | 2024-11-24 07:39 | XMS_ITS | Encounter Summary ---
Author Organization [employer] Address [address] 7t [place] [address] Care Team Providers Care Third Officer Name Role Phone Kathy Pryor MD Primary Care Provider + Encounter Details Date Type Department Care Team (Latest Contact Info) Description 05/25/2019 Abstract [facility] CONVERSIONS Dental, Provider, DDS Social History Tobacco [...] on filedocumented in this encounter Care Teams Third Officer Relationship Specialty Start Date End Date Kathy Pryor MD [address] [place] [phone] PCP - General Family Medicine 06/28/16 documented as of this encounter
--- OUTSIDE RECORDS SUMMARY | 2024-11-24 07:39 | XMS_ITS | Clinical Summary ---
Author Organization [employer] Address [address] [facility] 7t [place] [address] Care Team Providers Care Department Head Name Role Phone Kathy Pryor MD Primary Care Provider + Allergies No known active allergies Medications Calcium Carb-Cholecalcif darrian (Oyster Shell Calcium w/D) 500-5 MG-MCG tabletIndication s:Age related osteoporosis, unspecified pathological fracture presence TAKE 1 TABLET BY MOUTH TWICE DAILY 180 tablet 1 4 Active lisinopril 40 MG tabletIndication s:Primary hypertension TAKE 1 TABLET BY MOUTH EVERY DAY 90 tablet 3 4 Active atorvastatin (Lipitor) 40 MG tablet TAKE 1 TABLET BY MOUTH AT BEDTIME 90 tablet 3 4 Active omeprazole (PriLOSEC) [address] capsuleIndicatio ns:Gastroesophag eal reflux disease, unspecified whether esophagitis present TAKE 1 CAPSULE BY MOUTH TWICE DAILY 180 capsule 1 5 Active cholecalciferol VITAMIN D (Vitamin D-3) 50 MCG (2000 UT) tablet Take 1 tablet (50 mcg) by mouth Once per day. 90 tablet 1 5 Active alendronate (Fosamax) 70 MG tablet TAKE 1 TABLET BY MOUTH EVERY WEEK IN THE MORNING AND 30 MINUTES BEFORE FIRST FOOD OR BEVERAGE OR MEDICATION OF DAY 12 tablet 3 4 025 Discontin ued(Alter manjula therapy) Active Problems Problem Noted Date Diagnosed Date Overweight 11/17/2024 Assessment & Plan (11/17/2024 1:24 PM EST): Congratulated her on some weight loss. Discussed re weight reduction options including exercise, life style modifications, diet. Recommended to decrease soda and sugary beverage consumption, increase protein intake with meals (at least 1 portion of protein with each meal) to assist with satiety, increase dietary fiber Recommended at least 150 min/week of moderate intensity exercise. Grief 09/25/2023 Assessment & Plan (11/06/2023 11:31 AM EST): Coping well, has support of family and friends in the community She's able to reach out for safety Assessment & Plan (09/25/2023 12:10 PM EST): Discussed about coping mechanics including distractions, exercise, healthy meals. She's sleeping well. She has team number to call PRN FU 6 wks Electrocardiogram abnormal 09/24/202309/24 Prediabetes 01/01/2023 Assessment & Plan (11/17/2024 1:23 PM EST): A1c is at goal. I have discussed with patient regarding increasing physicial activity and decrease calorie intake Check A1c q6-12m FU in 6m Osteopenia 01/01/2023 Assessment & Plan (11/17/2024 1:25 PM EST): I will restart Vit D supplementation 2000iu daily X 6 months and FU levels. DC Fosamax and restart once Vit D levels are at least 50. Discussed with patient risk of falls. Assessment & Plan (03/08/2024 10:19 AM EDT): Complete 6mo of Vit D supplementation. Advised outdoor exercsie. Continue Calcium. Check Vit D levels prior to next appt. Assessment & Plan (12/05/2023 10:46 AM EDT): Recent BMD shows improvement of osteoporosis to osteopenia Continue Vit D to complete 6 m Start calcium Counseled regarding risk of falls and fractures. Primary hypertension 01/01/2023 Assessment & Plan (11/17/2024 1:22 PM EST): Borderline controlled. Advised to check BP at home regularly and if above 140/90 she will call back PRN. Otherwise FU in 6 months. Assessment & Plan (03/08/2024 5:27 PM EDT): [...] me in 2 months Impacted cerumen 10/12/2018 Dyslipidemia 07/14/2012 Hill's esophagus 06/17/2012 Impaired fasting [...] Vitamin D deficiency 06/17/2012 Assessment & Plan (11/17/2024 1:25 PM EST): Restart Vit D 2000iu daily X 6 months Assessment & Plan (03/08/2024 5:28 PM EDT): Complete 6mo rx, advised re outdoor exercise. Assessment & Plan (11/06/2023 11:30 AM EST): Continue vit d for the next 3 months Resolved Problems Problem Noted Date Diagnosed Date Resolved Date Pre-hypertension 05/03/2013 11/17/2024 Osteoporosis 06/17/2012 12/05/2023 Assessment & Plan (11/06/2023 11:33 AM EST): Continue fosamax and vit d for the next 3 m Order BDD and BMP Assessment & Plan (01/03/2023 12:27 PM EDT): will obtain report of last BMD test and scheduled fu Dexascan if needed Continue fosamax + calcium for now Encounters Date Type Department Care Team Description 11/22/2024 Telephone [facility] [address] [place] [phone] Kathy Pryor MD insurance 11/17/2024 11:30 AM EST Office Visit [facility] [address] [place] [phone] Kathy Pryor MD Osteopenia, unspecified location (Primary Dx); Vitamin D deficiency; Primary hypertension; Prediabetes; Dietary counseling; Exercise counseling; Overweight 11/17/2024 Telephone [facility] [address] [place] [phone] Kathy Pryor MD insurance 11/17/2024 Travel 11/09/[address] [phone] Kathy Pryor MD Chart prep 11/05/2024 Patient Outreach [facility] [address] [place] [address] Kathy Pryor MD Pre-visit Planning (SDOH screening negative and tobacco screening negative) 09/28/2024 Patient Outreach [facility] [address] [place] [phone] Kathy Pryor MD Pre-visit Planning (SDOH screening negative and tobacco screening negative) 09/22/2024 Refill [facility] [address] [place], [place] [phone] Kathy Pryor MD Gastroesophageal reflux disease, unspecified [...] Sign Reading Time Taken Comments Blood Pressure 150/80 11/17/2024 11:44 AM EST Pulse 91 11/17/2024 11:12 AM EST Temperature 35.9 ??C (96.6 ??F) 11/17/2024 11:[address] Respiratory Rate 16 11/17/2024 11:12 AM EST Oxygen Saturation 95% 11/17/2024 11:12 AM EST Inhaled Oxygen Concentration - - Weight 71.2 kg (157 lb) 11/17/2024 11:12 AM EST Height 157.5 cm (5' 2 ) 11/17/2024 11:12 AM EST Body Mass Index 28.72 11/17/2024 11:12 AM EST Plan of Treatment Health Maintenance Due Date Last Done Comments CT Colonography 1950 FIT DNA/Cologuard 1950 FIT 1950 FOBT 1950 Sigmoidoscopy 1950 Alcohol/Substance Use Screening 1961 Hepatitis C Screening 12/19/1967 COVID-19 Vaccine ( season) 2024 06/17/2022, 01/29/2022, 07/30/2021, Additional history exists RSV Patients and Patients Aged 60 years or older (1 - 1-dose 75+ series) 2024 Depression Screening 03/08/2025 03/08/2024, 03/08/20 24 SDOH Screening 11/05/2025 11/05/2024 Diabetes: Hemoglobin A1C 11/17/2025 025, 09/25/2023, 01/03/2023, Additional history exists Mammogram 11/17/2025 11/18/2023, 10/17, 11/11/2022, Additional history exists Tobacco Screening 11/17/2025 11/17/2024 Lipid Panel 10/27/2028 10/27/2023, 12/15, 03/20/2021 Colonoscopy [...] Procedure Name Priority Date/Time Associated Diagnosis Comments POCT GLYCATED HEMOGLOBIN, TOTAL Routine 11/17/2024 11:47 AM EST Prediabetes POCT GLUCOSE Routine 11/17/2024 11:44 AM EST Prediabetes VITAMIN D,25-OH,TOTAL,IA Routine 11/03/2024 8:08 AM EST Osteopenia of lumbar spine BI MAMMOGRAM SCREENING TOMOSYNTHESIS BILATERAL Routine 11/18/2023 8:05 AM EST LIPID PANEL WITH REFLEX TO DIRECT LDL Routine 10/27/2023 9:08 AM EST Essential hypertension Impaired fasting glucose HM COLONOSCOPY Routine 11/13/2018 7:12 AM EST from Last 3 Months or Most Recently Relevant to Health Maintenance Results * (ABNORMAL) POCT HGB A1C (11/17/2024 11:47 AM EST) Hemoglobin A1C 6.4(A) 4.0 - 6.0 % QC Media Lot # [id number] Lot# Expiration Date [id number] Blood 11/17/2024 11:4 7 AM EST Kathy Pryor MD POINT OF CARE TEST ENTER /EDIT ORDERABLES Final Result * POCT Glucose (11/17/2024 11:44 AM EST) Glucose Blood, POC 145 60 - 200 mg/dL QC Media Lot # [id number] Lot# Expiration Date [id number] Blood Capillary blood specimen / Unknown 11/17/2024 11:44 AM EST Kathy Pryor MD POINT OF CARE TEST ENTER /EDIT ORDERABLES Final Result * (ABNORMAL) Vitamin D, 25-Hydroxy, Total, Immunoassay (11/03/2024 8:08 AM EST) Vitamin D 25-OH Total 27.3(L) >30 ng/mL [facility] Comment:Health Based Referen ce Values*< 20 ng/mL Ryuuueplm20-40 ng/mL Insufficient> 30 ng/mL Sufficient*Mathew COSTELLO. N Engl J Med. 2007;357:266-280Care must be taken in interpreting Vitamin D results fromdifferent laboratories and methodologies. Published datademonstrated that results from patients undergoinghemodialysis may show a negative bias when tested withvarious automated 25-OH vitamin D assays when compared toLC-MS/MS.When testing samples from patients whose predominant form ofVitamin D is Vitamin D2, such as patients receiving VitaminD2 supplementation, results that are subtherapeutic shouldbe confirmed with another method such as LC-MS/MS. Blood 11/03/2024 8:08 AM EST 11/03/2024 11:16 AM EST us Kathy Pryor MD LAB BLOOD ORDERABLES Fin al Result [facility] [address] [place] [phone] * BI Mammogram Screening Tomosynthesis Bilateral (11/18/2023 8:05 AM EST) Anatomical Region Laterality Modality Breast Bilateral Mammography 11/18/2023 8:05 AM EST Narrative 12/02/2023 9:05 AM EDT ? [facility] ? [address] ?[place] [address] ? Mammography Report ? Signed ? Patient: Campuzano,Ruthie ?MR#: [id number] ?? [id number] ? : 1950 ?Acct:[id number] ? Age/Sex: 72 / F ?ADM Date: 11/18/23 ? Loc: HO.MAMMO ? Attending Dr: Kathy Pryor MD ? Ordering Physician: Kathy Pryor MD ?Results: 2Be ?? nign Findings ? Date of Service: 11/18/23 ?Follow Up: 1 Year From Orig ?? inal Mammogram ? Procedure(s): MM tomosynthesis screening BI ?? Accession Number(s): [id number] ? cc: Kathy Pryor MD ? EXAMINATION: [...] 0901 ? DD/ 0805 ? TD/TT: ? Dam Worker: ? Procedure Note Genna, Image - 12/02/2023 [facility] [address] [place] [address] Mammography Report Signed Patient: Joe Campuzano#: [id number] : 1950Acct:[id number] Age/Sex: 72 / FADM Date: 11/18/23 Loc: TRAY Attending Dr: Kathy Pryor MD Ordering Physician: Kathy Pryoresults: 2Be nign Findings Date of Service: 11/18/23Follow Up: 1 Year From Orig inal Mammogram Procedure(s): MM tomosynthesis screening BI Accession Number(s): [id number] cc: Kathy rPyor MD EXAMINATION: MM SCREENING DIGITAL BREAST TOMOSYNTHESIS, [...] Dada Mora MD in OV> 12/02/23900 DD/ 08 TD/TT: Dam Worker: Kathy Pryor MD IMG BI PROCEDURES Final Result * (ABNORMAL) Lipid Panel with Reflex to Direct LDL (10/27/2023 9:08 AM EST) Triglycerides 163(H) <150 mg/dL [facility] Comment:Desirable Triglyceri de: less than 150 mg/dLBorderline High Triglyceride 150-199 mg/dLHigh Triglyceride: 200-499 mg/dLVery High Triglyceride: greater than or equal to 5OO mg/dL Cholesterol 174 <200 mg/dL [facility] Comment:Desirable Cholestero l: less than 200 mg/dLBorderline High Cholesterol: 200-239 mg/dLHigh Cholesterol: greater than 239 mg/dL LDL Cholesterol Calculated 94 <100 mg/dL [facility] Comment:Desirable LDL: less than 100 mg/dLNear Optimal/Above Optimal LDL: 110- 129 mg/dLBorderline High LDL: 130-159 mg/dLHigh LDL: 160-189 mg/dLVery High LDL: greater than or equal to 190 mg/dL HDL Cholesterol 48 >40 mg/dL [facility] Comment:Desirable HDL: great er than 40 mg/dL Note: This HDL assay may give artificially low results in patients with liver disease. Blood 10/27/2023 9:08 AM EST 10/27/2023 11:34 AM EST Kathy Pryor MD LAB BLOOD ORDERABLES Fin al Result Performing Organization Address City/State/[facility] Co de Phone Number [facility] [address] [place] [phone] * Hm Colonoscopy (11/13/2018 7:12 AM EST) Historical Provider HEALTH MAINTENANCE Final Result from Last 3 Months or Most Recently Relevant to Health Maintenance Insurance [facility] [address] Care Teams Department Head Relationship Specialty Start Date End Date Kathy Pryor MD [address] [place] [phone] PCP - General Family Medicine 06/28/16
--- OUTSIDE RECORDS SUMMARY | 2024-11-24 07:39 | XMS_ITS ---
Author Organization [facility] Address [address] [place] [address] Care Team Providers Care Correctional Captain Name Role Phone Konstantin CHRISTINA, Kathy Primary Care Provider Unavail colin Coburn Jr, Jasiel Unavailable REASON FOR VISIT Patient presents today for barretts esophagus Encounters Encounter Location Date Provider Diagnosis [facility] [address] [place] [address] 11/24/2024 Jasiel Coburn Jr Plan Of Treatment Next Appt Details Provider Name:Jasiel palacio Jr, 11/24/2024 11:00:00 AM, [address], [address], [place], [address], Provider Name:Jasiel palacio Jr, 01/31/2025 11:20:00 AM, [address], [address], [place], [address], Progress Notes * GERARD GARCIADOB: [birth year] (73 yo F)Acc No.[id number]:11/24/2024 Progress Notes Patient:?GERARD GARCIA Provider:?Jasiel Coburn MD :1950???Age:73 Y???Sex:Female D ate:11/24/2024 Address:[address] [place] [address] [phone] Pcp:Kathy Pryor MD Subjective: * Chief Complaints: * ???1. Patient presents today for barretts esophagus. * Medical History:? Objective: * Vitals:? Assessment: Plan: * Treatment: * * The named appointment provid er may or may not be the originator of this progress note, and it is not deemed complete until electronically signed by the appointment provider. Sign off status: Pending * Provider:?Jasiel Coburn MD Date:?0 11/24/2024 Generated for Ce vargas/Nohemy/Verna on:?11/24/2024 07:39 AM EDT
--- OUTSIDE RECORDS SUMMARY | 2024-11-24 07:39 | XMS_ITS | Encounter Summary ---
Author Organization [employer] Address [address] [facility] [address] 7t [place] [address] Care Team Providers Care Rubble Placer Name Role Phone Kathy Pryor MD Primary Care Provider + Encounter Details Date Type Department Care Team (Late st Contact Info) Description 01/07/2023 Orders Only [facility] [address] [place], [place] [phone] Kathy Pryor MD [address] [place], [place] [phone] Essential hypertension (Primary Dx); Prediabetes; Vitamin D [...] Miscellaneous Notes * Result Encounter Note - Kathy Pryor MD - 01/07/2023 2:23 PM EDT Labs on 01/08 showed mildly low vit D and mild hyperlipidemia. I will fu w her for further POC at next appt (2m). documented in this encounter Plan of Treatment Not on file documented as of this encounter Procedures Procedure [...] Total, IA 26(L) 30 - 100 ng/mL [employer] [facility] Comment: Vitamin D Status ? 25-OH Vitamin D: Deficiency: ?<20 ng/mL Insufficiency: ? 20 - 29 ng/mL Optimal: ? > or = 30 ng/mL For 25-OH Vitamin D testing on patients on D2-supplementation and patients for whom quantitation of D2 and D3 fractions is required, the [employer] Expression() 25-OH VIT D, (D2,D3), LC/MS/MS is recommended: order code 24615 (patients >2yrs). See Note 1 Note 1 For additional information, please refer to http://education.Impulsiv/faq/RPM799 (This link is being provided for informational/ educational purposes only.) 01/08/2023 8:01 AM EDT 01/08/2023 8:01 AM EDT Narrative [facility] - 01/08/2023 7:26 PM EDT FASTING:YES FASTING: YES Kathy Pryor MD LAB BLOOD ORDERABLES Fin al Result Performing Organization Address City/[facility]/ZIP Co de Phone Number [address], [place] [address] [employer] [place] [employer] [address] [place] [address] * (ABNORMAL) Lipid Panel with Reflex to Direct LDL (01/08/2023 8:01 AM EDT) [facility] Signature Cholesterol, Total 190 <200 mg/dL [employer] [place] [employer] [place] HDL Cholesterol 51 > OR = 50 mg/dL [employer] [place] [employer] [place] Triglycerides 131 <150 mg/dL [employer] [place] [employer] [place] LDL Cholesterol 114(H) mg/dL (calc) [employer] [place] [employer] [place] Comment: Reference range: <100 Desirable range <100 mg/dL for primary prevention; ?? <70 mg/dL for patients with CHD or diabetic patients with > or = 2 CHD risk factors. LDL-C is now calculated using the Dustin-Cata calculation, which is a validated novel method providing better accuracy than the Friedewald equation in the estimation of LDL-C. Dustin SS et al. ROSETTA. 2013;310(19): 6060-3288 (http://education.Impulsiv/faq/IEO044) Chol/HDLC Ratio 3.7 <5.0 (calc) [employer] [place] [employer] [place] Non-HDL Cholesterol 139(H) <130 mg/dL (calc) [employer] [place] [employer] [place] Comment: For patients with diabetes plus 1 major ASCVD risk factor, treating to a non-HDL-C goal of <100 mg/dL (LDL-C of <70 mg/dL) is considered a therapeutic option. 01/08/2023 8:01 AM EDT 01/08/2023 8:01 AM EDT Narrative [facility] - 01/08/2023 7:26 PM EDT FASTING:YES FASTING: YES Kathy Pryor MD LAB BLOOD ORDERABLES Fin al Result Performing Organization Address [facility] Co de Phone Number [facility] [address], [place] [address] [employer] [place] [employer] [address] [place] [address] * (ABNORMAL) Basic Metabolic Panel (01/08/2023 8:01 AM EDT) [facility] Glucose 114(H) 65 - 99 mg/dL [employer] [place] [employer] Comment: ? Fasting reference interval For someone without known diabetes, a glucose value between 100 and 125 mg/dL is consistent with prediabetes and should be confirmed with a follow-up test. Urea Nitrogen (BUN) 21 7 - 25 mg/dL [employer] [place] [employer] Creatinine, Serum 0.64 0.60 - 1.00 mg/dL [employer] [place] [employer] eGFR 93 > OR = 60 mL/min/1 .73m2 [employer] [place] [employer] Comment: The eGFR is based on the CKD-EPI 2020 equation. To calculate the new eGFR from a previous Creatinine or Cystatin C result, go to https://www.kidney.org/professionals/ kdoqi/gfr%5Fcalculator BUN/Creatinine Ratio NOT APPLICABLE 6 - 22 (calc) [employer] [place] [facility] Sodium 140 135 - 146 mmol/L [employer] [place] [employer] [facility] Potassium 3.8 3.5 - 5.3 mmol/L [employer] [place] [employer] [facility] Chloride 105 98 - 110 mmol/L [employer] [place] [employer] Carbon Dioxide 27 20 - 32 mmol/L [employer] [place] [employer] Calcium 9.0 8.6 - 10.4 mg/dL [employer] [place] [employer] Blood Venous blood specimen / Unknown 01/08/2023 8:01 AM EDT 01/08/2023 8:01 AM EDT Narrative [facility] - 01/08/2023 7:26 PM EDT FASTING:YES FASTING: YES us Kathy Pryor MD LAB BLOOD ORDERABLES Fin al Result [facility] [address], [place] [address] [employer] [place] [employer] [place] [address] [place] [phone] documented in this encounter Visit Diagnoses Diagnosis Essential hypertension- Primary Unspecified essential hypertension Prediabetes Other abnormal glucose Vitamin D deficiency documented in this encounter Care Teams Rubble Placer Relationship Specialty Start Date End Date Kathy Pryor MD [address] [place] [phone] PCP - General Family Medicine 06/28/16 documented as of this encounter
--- OUTSIDE RECORDS SUMMARY | 2024-11-24 07:39 | XMS_ITS | Encounter Summary ---
Author Organization [employer] Address [address] [facility] [address] [place] [address] Care Team Providers Care Information Systems Consultant Name Role Phone Kathy Pryor MD Primary Care Provider + Encounter Details Date Type Department Care Team (Late st Contact Info) Description 09/26/2022 Orders Only [facility] [address] [place], [place] [phone] Lenora Norman LPN Social History Tobacco Use [...] on filedocumented in this encounter Care Teams Information Systems Consultant Relationship Specialty Start Date End Date Kathy Pryor MD [address] [place] [address] PCP - General Family Medicine 06/28/16 documented as of this encounter
--- OUTSIDE RECORDS SUMMARY | 2024-11-24 07:39 | XMS_ITS | Encounter Summary ---
Author Organization [employer] Address [address] [facility] 7t [place] [address] Care Team Providers Care Comb Setter Name Role Phone Kathy Pryor MD Primary Care Provider + Reason for Visit * Reason Comments Follow-up Encounter Details Date Type Department Care Team ([facility] st Contact Info) Description 11/17/2024 11:30 AM EST Office Visit [facility] MEDICINE [address] [place], [place] [phone] Kathy Pryor MD [address] [place], [place] [phone] Osteopenia, unspecified location (Primary Dx); Vitamin D deficiency; Primary hypertension; Prediabetes; Dietary counseling; Exercise counseling; Overweight Social History Tobacco Use Types Packs/Day Years [...] AM EDT documented as of this encounter Last Filed Vital Signs Vital Sign Reading [...] Mass Index 28.72 11/17/2024 11:12 AM EST documented in this encounter Progress Notes * Kathy Pryor MD - 11/17/2024 11:30 AM EST SUBJECTIVE: Ruthie Campuzano is a 73 y.o. year old female who presents for follow up HTN. Denies recent illness, injury, or hospitalization. Labs on 11/03/2024 show low VitD. BP at home 125/80s. GI appointment 01/2025 Last Eye Exam 2023 Acute Concerns: Social History Social History Narrative Not on file Patient Active Problem List Diagnosis Hill's esophagus Prediabetes Osteopenia Impaired fasting glucose Impacted cerumen Primary hypertension Dyslipidemia Chronic interstitial cystitis Vitamin D deficiency Electrocardiogram abnormal Grief Overweight Family History Problem Relation Name Age of Onset Diabetes Mother Hypertension Mother Stroke Father 86 Hypertension Sister Diabetes type II Brother Review of Systems Constitutional: Negative for chills, fatigue and fever. HENT: Negative for congestion, ear pain, nosebleeds, rhinorrhea, sinus pressure, sore throat and trouble swallowing. Eyes: Negative for pain and discharge. Respiratory: Negative for cough, chest tightness and shortness of breath. Cardiovascular: Negative for chest pain, palpitations and leg swelling. Gastrointestinal: Negative for abdominal pain, blood in stool, constipation, diarrhea and nausea. Endocrine: Negative for polydipsia and polyuria. Genitourinary: Negative for dysuria, frequency, genital sores, pelvic pain and vaginal discharge. Musculoskeletal: Negative for back pain and neck pain. Skin: Negative for rash. Allergic/Immunologic: Negative for environmental allergies. Neurological: Negative for dizziness, seizures, weakness, light-headedness and headaches. Hematological: Negative for adenopathy. Psychiatric/Behavioral: Negative for agitation, behavioral problems, self-injury and suicidal ideas. OBJECTIVE: Vitals: 11/17/24 1112 BP: (!) 185/85 BP Location: Left arm Patient Position: Sitting BP Cuff Size: Large adult Pulse: 91 Resp: 16 Temp: 96.6 ??F (35.9 ??C) TempSrc: Temporal SpO2: 95% Weight: 157 lb (71.2 kg) Height: 5' 2 (1.575 m) Physical Exam HENT: Right Ear: Tympanic membrane and ear canal normal. Left Ear: Tympanic membrane and ear canal normal. Mouth/Throat: Mouth: Mucous membranes are moist. Pharynx: No oropharyngeal exudate or posterior oropharyngeal erythema. Eyes: Pupils: Pupils are equal, round, and reactive to light. Cardiovascular: Rate and Rhythm: Regular rhythm. Pulses: Normal pulses. Heart sounds: Normal heart sounds. No murmur heard. Pulmonary: Breath sounds: Normal breath sounds. Abdominal: General: Bowel sounds are normal. Palpations: Abdomen is soft. Tenderness: There is no abdominal tenderness. Musculoskeletal: General: Normal range of motion. Cervical back: Neck supple. Skin: General: Skin is warm. Neurological: General: No focal deficit present. Mental Status: She is alert and oriented to person, place, and time. Psychiatric: Mood and Affect: Mood normal. Behavior: Behavior normal. Problem List Items Addressed This Visit Osteopenia - Primary I will restart Vit D supplementation 2000iu daily X 6 months and FU levels. DC Fosamax and restart once Vit D levels are at least 50. Discussed with patient risk of falls. Relevant Orders Vitamin D, 25-Hydroxy, Total, Immunoassay PTH, Intact Without Calcium Basic Metabolic Panel Vitamin D deficiency Restart Vit D 2000iu daily X 6 months Relevant Orders Vitamin D, 25-Hydroxy, Total, Immunoassay PTH, Intact Without Calcium Basic Metabolic Panel Primary hypertension Borderline controlled. Advised to check BP at home regularly and if above 140/90 she will call back PRN. Otherwise FU in 6 months. Prediabetes A1c is at goal. I have discussed with patient regarding increasing physicial activity and decrease calorie intake Check A1c q6-12m FU in 6m Relevant Orders POCT Glucose (Completed) POCT HGB A1C (Completed) Overweight Congratulated her on some weight loss. Discussed re weight reduction options including exercise, life style modifications, diet. Recommended to decrease soda and sugary beverage consumption, increase protein intake with meals (at least 1 portion of protein with each meal) to assist with satiety, increase dietary fiber Recommended at least 150 min/week of moderate intensity exercise. Other Visit Diagnoses Dietary counseling Exercise counseling Follow Up: Current Outpatient Medications on File Prior to Visit Medication Sig Dispense Refill atorvastatin (Lipitor) 40 MG tablet TAKE 1 TABLET BY MOUTH AT BEDTIME 90 tablet 3 Calcium Carb-Cholecalciferol (Oyster Shell Calcium w/D) 500-5 MG-MCG tablet TAKE 1 TABLET BY MOUTH TWICE DAILY 180 tablet 1 lisinopril 40 MG tablet TAKE 1 TABLET BY MOUTH EVERY DAY 90 tablet 3 omeprazole (PriLOSEC) [address] capsule TAKE 1 CAPSULE BY MOUTH TWICE DAILY 180 capsule 1 [DISCONTINUED] alendronate (Fosamax) 70 MG tablet TAKE 1 TABLET BY MOUTH EVERY WEEK IN THE MORNING AND 30 MINUTES BEFORE FIRST FOOD OR BEVERAGE OR MEDICATION OF DAY 12 tablet 3 No current facility-administered medications on file prior to visit. ICleo, am serving as a scribe to document services personally performed by Dr. Kahty Pryor, based on the patient's response to questions by provider and provider's statements to me. documented in this encounter Miscellaneous Notes * Assessment & Plan Note - Cleo Bell MA - 11/17/2024 1:24 PM EST Associated Problem(s): Overweight Congratulated her on some weight loss. Discussed re weight reduction options including exercise, life style modifications, diet. Recommended to decrease soda and sugary beverage consumption, increase protein intake with meals (at least 1 portion of protein with each meal) to assist with satiety, increase dietary fiber Recommended at least 150 min/week of moderate intensity exercise. * Assessment & Plan Note - Cleo Bell MA - 11/17/2024 1:23 PM EST Associated Problem(s): Prediabetes A1c is at goal. I have discussed with patient regarding increasing physicial activity and decrease calorie intake Check A1c q6-12m FU in 6m * Assessment & Plan Note - Cleo Bell MA - 11/17/2024 1:22 PM EST Associated Problem(s): Primary hypertension Borderline controlled. Advised to check BP at home regularly and if above 140/90 she will call back PRN. Otherwise FU in 6 months. * Assessment & Plan Note - Cleo Bell MA - 11/17/2024 1:21 PM EST Associated Problem(s): Vitamin D deficiency Restart Vit D 2000iu daily X 6 months * Assessment & Plan Note - Cleo Bell MA - 11/17/2024 1:19 PM EST Associated Problem(s): Osteopenia I will restart Vit D supplementation 2000iu daily X 6 months and FU levels. DC Fosamax and restart once Vit D levels are at least 50. Discussed with patient risk of falls. documented in this encounter Plan of Treatment Scheduled Orders Name Type Priority Associated Diagnoses Orde r Schedule Vitamin D, 25-Hydroxy, Total, Immunoassay Lab Routine Osteopenia, unspecified location Vitamin D deficiency Expected: 04/19/2025 (Approximate), Expires: 11/17/2025 PTH, Intact Without Calcium Lab Routine Osteopenia, unspecified location Vitamin D deficiency Expected: 04/19/2025, Expires: 11/17/2025 Basic Metabolic Panel Lab Routine Osteopenia, unspecified location Vitamin D deficiency Expected: 04/19/2025 (Approximate), Expires: 11/17/2025 documented as of this encounter Procedures Procedure Name Priority Date/Time Associated Diagnosis Comments POCT GLYCATED HEMOGLOBIN, TOTAL Routine 11/17/2024 11:47 AM EST Prediabetes POCT GLUCOSE Routine 11/17/2024 11:44 AM EST Prediabetes documented in this encounter Results * (ABNORMAL) POCT HGB A1C (11/17/2024 11:47 AM EST) Hemoglobin A1C 6.4(A) 4.0 - 6.0 % QC Media Lot # [id number] Lot# Expiration Date Blood 11/17/2024 11:4 7 AM EST Kathy Pryor MD POINT OF CARE TEST ENTER /EDIT ORDERABLES Final Result * POCT Glucose (11/17/2024 11:44 AM EST) Glucose Blood, POC 145 60 - 200 mg/dL QC Media Lot # [id number] Lot# Expiration Date 82,407 Blood Capillary blood specimen / Unknown 11/17/2024 11:44 AM EST Kathy Pryor MD POINT OF CARE TEST ENTER /EDIT ORDERABLES Final Result documented in this encounter Visit Diagnoses Diagnosis Osteopenia, unspecified location- Primary Vitamin D deficiency Primary hypertension Unspecified essential hypertension Prediabetes Other abnormal glucose Dietary counseling Dietary surveillance and counseling Exercise counseling Overweight documented in this encounter Additional Health Concerns Assessment Noted Time PHQ-9 Depression Total Score: 0 03/08/20 24 10:04 AM EDT documented as of this encounter Care Teams Comb Setter Relationship Specialty Start Date End Date Kathy Pryor MD [address] [place] [id number] PCP - General Family Medicine 06/28/16 documented as of this encounter
--- OUTSIDE RECORDS SUMMARY | 2024-11-24 07:39 | XMS_ITS ---
Author Organization [facility] Address [address] [place] [address] Care Team Providers Care Pool Table Mechanic Name Role Phone Konstantin CHRISTINA, Kathy Primary Care Provider Unavail Jasiel Eli Jr Unavailable REASON FOR VISIT Pt no showed Encounters Encounter Location Date Provider Diagnosis [facility] [address] [place] [address] 07/19/2024 Jasiel Coburn Jr Plan Of Treatment Next Appt Details Provider Name:Jasiel palacio Jr, 11/24/2024 11:00:00 AM, [address], [address], [place], [address], Provider Name:Jasiel palacio Jr, 01/31/2025 11:20:00 AM, [address], [address], [place], [address], Progress Notes * GERARD GARCIADOB: [birth year] (73 yo F)Acc No.[id number]:07/19/2024 Patient:?GERARD GARCIA :1950???Age:73 Y???Sex:Female Address:[address], [place] [address] * true * Date:? Generated for Printi sam/Nohemy/eTransmitting on:?11/24/2024 07:38 AM EDT
--- OUTSIDE RECORDS SUMMARY | 2024-11-24 07:39 | XMS_ITS | Encounter Summary ---
Author Organization [employer] Address [address] [facility] 7t [place] [address] Care Team Providers Care Dialer Name Role Phone Kathy Pryor MD Primary Care Provider + Reason for Visit * Reason Onset Date Comments insurance 11/17/2024 Encounter Details Date Type Department Care Team ([facility] st Contact Info) Description 11/17/2024 Telephone [facility] MEDICINE [address] [place], [place] [phone] Kathy Pryor MD [address] [place], [place] [phone] insurance Social History Tobacco Use Types Packs/Day Years [...] encounter Miscellaneous Notes * Telephone Encounter - Mana Zimmer - 11/17/2024 11:07 AM EST Pt stated she spoke to insurance enrollment to [place] and she said she switched her pcp on her insurance to . documented in this encounter Plan of Treatment Not on file documented as of this encounter Visit Diagnoses Not on filedocumented in this encounter Additional Health Concerns Assessment Noted Time PHQ-9 Depression Total Score: 0 03/08/20 24 10:04 AM EDT documented as of this encounter Care Teams Dialer Relationship Specialty Start Date End Date Kathy Pryor MD [address] [place] [phone] PCP - General Family Medicine 06/28/16 documented as of this encounter
--- OUTSIDE RECORDS SUMMARY | 2024-11-24 07:39 | XMS_ITS | Encounter Summary ---
Author Organization [employer] Address [address] [facility] [address] 7t [place] [address] Care Team Providers Care Senior Commissions Analyst Name Role Phone Kathy Pryor MD Primary Care Provider + Reason for Visit * Reason Onset Date Comments Durable Medical Equipment 02/05/2024 Encounter Details Date Type Department Care Team ([facility] st Contact Info) Description 02/05/2024 Telephone [facility] MEDICINE 230 [place], [place] [phone] Kathy Pryor MD 230 [place], [place] [phone] Durable Medical Equipment Social History Tobacco Use [...] Miscellaneous Notes * Telephone Encounter - Waldo Muñoz - 02/05/2024 10:53 AM EDT Tc from pt requesting a new blood pressure monitor stating current has broken and is no longer working. If any questions you can contact pt at [phone]. documented in this encounter Plan of Treatment Not on file documented as of this encounter Visit Diagnoses Not on filedocumented in this encounter Care Teams Senior Commissions Analyst Relationship Specialty Start Date End Date Kathy Pryor MD [address] [place] [id number] PCP - General Family Medicine 06/28/16 documented as of this encounter
--- OUTSIDE RECORDS SUMMARY | 2024-11-24 07:39 | XMS_ITS | Encounter Summary ---
Author Organization [employer] Address [address] 7t [place] [address] Care Team Providers Care Solar Field Installation Crew Member Name Role Phone Kathy Pryor MD Primary Care Provider + Encounter Details Date Type Department Care Team (Latest Contact Info) Description 11/17/2024 Travel Social History Tobacco Use Types Packs/Day Years [...] documented as of this encounter Care Teams Solar Field Installation Crew Member Relationship Specialty Start Date End Date Kathy Pryor MD [address] [place] [phone] PCP - General Family Medicine 06/28/16 documented as of this encounter
--- OUTSIDE RECORDS SUMMARY | 2024-11-24 07:39 | XMS_ITS | Encounter Summary ---
Author Organization [employer] Address [address] [facility] 7t [place] [address] Care Team Providers Care Terminal Operations Manager Name Role Phone Kathy Pryor MD Primary Care Provider + Encounter Details Date Type Department Care Team (Late st Contact Info) Description 03/05/2023 Abstract [facility] MEDICINE 230 [place], [place] [phone] Kathy Pryor MD [address] [place], [place] [phone] Social History Tobacco Use Types Packs/Day Years [...] Procedure Name Priority Date/Time Associated Diagnosis Comments COLONOSCOPY Routine 06/03/2008 10:00 AM EDT documented in this encounter Results * Hm Colonoscopy (06/03/2008 10:00 AM EDT) Colonoscopy Normal Normal Narrative Janice Albarado - 06/03/2008 10:00 AM EDT Recommended 10 year follow up us Historical Provider HEALTH MAINTENANCE Edited Result - Final documented in this encounter Visit Diagnoses Not on filedocumented in this encounter Care Teams Terminal Operations Manager Relationship Specialty Start Date End Date Kathy Pryor MD [address] [place] [phone] PCP - General Family Medicine 06/28/16 documented as of this encounter
--- OUTSIDE RECORDS SUMMARY | 2024-11-24 07:39 | XMS_ITS | Encounter Summary ---
Author Organization [employer] Address [address] [facility] [address] 7t [place] [address] Care Team Providers Care Media Supervisor Name Role Phone Kathy Pryor MD Primary Care Provider + Encounter Details Date Type Department Care Team (Late st Contact Info) Description 01/28/2024 Orders Only [facility] MEDICINE 230 [place], [place] [phone] ProviderSebastian MD Social History Tobacco Use Types [...] on filedocumented in this encounter Care Teams Media Supervisor Relationship Specialty Start Date End Date Kathy Pryor MD [address] [place] [phone] PCP - General Family Medicine 06/28/16 documented as of this encounter
--- OUTSIDE RECORDS SUMMARY | 2024-11-24 07:39 | XMS_ITS | Encounter Summary ---
Author Organization [employer] Address [address] [facility] 7t [place] [address] Care Team Providers Care Anchorman Name Role Phone Kathy Pryor MD Primary Care Provider + Reason for Visit * Reason Onset Date Comments insurance 11/22/2024 Encounter Details Date Type Department Care Team ([facility] st Contact Info) Description 11/22/2024 Telephone [facility] MEDICINE [address] [place], [place] [phone] Kathy Pryor MD [address] [place], [place] [phone] insurance Social History Tobacco Use Types Packs/Day [...] Miscellaneous Notes * Telephone Encounter - Mana Groan - 11/22/2024 12:01 PM EDT Called pt to inform them there pcp assigned to their insurance its not pt said she spoke to insurance enrollment on her appt she came to and they said they would switch it over but pt said she will call her insurance. documented in this encounter Plan of Treatment Not on file documented as of this encounter Visit Diagnoses Not on filedocumented in this encounter Additional Health Concerns Assessment Noted Time PHQ-9 Depression Total Score: 0 03/08/20 10:04 AM EDT documented as of this encounter Care Teams Anchorman Relationship Specialty Start Date End Date Kathy Pryor MD [address] [place] [phone] PCP - General Family Medicine 06/28/16 documented as of this encounter
--- OUTSIDE RECORDS SUMMARY | 2024-11-24 07:39 | XMS_ITS | Encounter Summary ---
Author Organization [employer] Address [address] [facility] 7t [place] [address] Care Team Providers Care Scallop Dredger Name Role Phone Kathy Pryor MD Primary Care Provider + Reason for Visit * Reason Onset Date Comments Chart prep 11/09/2024 Encounter Details Date Type Department Care Team ([facility] st Contact Info) Description 11/09/2024 Telephone [facility] MEDICINE 230 [place] [address] Kathy Pryor MD 230 [place] [address] Chart prep Social History Tobacco Use Types Packs/Day Years [...] encounter Miscellaneous Notes * Telephone Encounter - Janice Street [place] - 11/09/2024 11:10 AM EST Chart Prep Labs: done Images: done Vaccines due: yes Referrals: complete Screenings: Up to date Overdue care gaps: Up to date documented in this encounter Plan of Treatment Not on file documented as of this encounter Visit Diagnoses Not on filedocumented in this encounter Additional Health Concerns Assessment Noted Time PHQ-9 Depression Total Score: 0 03/08/20 24 10:04 AM EDT documented as of this encounter Care Teams Scallop Dredger Relationship Specialty Start Date End Date Kathy Pryor MD [address] [place] [phone] PCP - General Family Medicine 06/28/16 documented as of this encounter
== END 2024-11-24 07:35 | disposition home or self-care (01) ==
LOC: HO.MAMMO 07:34
PROVIDERS: PCP Internal Medicine; Visit Provider Internal Medicine
DX: Z12.31 Encounter for screening mammogram for malignant neoplasm of breast (principal)
CPT/HCPCS: 77063; 77067

== ENCOUNTER → 2024-11-24 08:00 | Outpatient (BNV) | payer MEDICARE, SELFPAY | PROVIDERS: PCP Internal Medicine; Visit Provider Internal Medicine | DX: Z12.31 Encounter for screening mammogram for malignant neoplasm of breast (principal) | CPT/HCPCS: 77063; 77067 ==

== ENCOUNTER 2025-05-26 09:16 | Outpatient (REF) | payer MEDICARE, SELFPAY ==
--- OUTSIDE RECORDS SUMMARY | 2024-07-19 07:20 | XMS_ITS ---
Author Organization [facility] Address [address] [place] [address] Care Team Providers Care Commercial Underwriter Name Role Phone Konstantin CHRISTINA, Kathy Primary Care Provider Unavail colin Coburn Jr, Jasiel Unavailable [phone] REASON FOR VISIT Patient presents today for toussaint's esophagus Encounters Encounter Location Date Provider Diagnosis [facility] [address] [place] [address] 07/19/2024 Jasiel Coburn Jr Plan Of Treatment Next Appt Details Provider Name:Jasiel palacio Jr, 11/28/2025 10:40:00 AM, [address], [address], [place], [address], Progress Notes * GERARD GARCIADOB: [birth year] (74 yo F)Acc No.[id number]:07/19/2024 Progress Notes Patient: GERARD REID Provider: Tiffanie Coburn MD :1950 A ge:73 Y S ex:Female Date:07/19/2024 Address:[address] [place] [address] Pcp:Kathy Pryor MD Subjective: * Chief Complaints: * 1 . Patient presents today for toussaint's esophagus. * Medical History: Objective: * Vitals: Assessment: Plan: * Treatment: * * The named appointment provid er may or may not be the originator of this progress note, and it is not deemed complete until electronically signed by the appointment provider. Sign off status: Pending * Provider: Tiffanie Coburn MD Date: 09/18/2023 Generated for Ce vargas/Nohemy/Brendaitting on: 0 05/26/2025 10:41 AM EDT
--- OUTSIDE RECORDS SUMMARY | 2025-01-31 07:20 | XMS_ITS ---
Author Organization [facility] Address [address] [place] [address] Care Team Providers Care Wire Winder Name Role Phone Konstantin CHRISTINA, Kathy Primary Care Provider Unavail colin Coburn Jr, Jasiel Unavailable [phone] REASON FOR VISIT acid reflux Encounters Encounter Location Date Provider Diagnosis [facility] [address] [facility] [address] [place] [address] 01/31/2025 Jasiel Coburn Jr Plan Of Treatment Next Appt Details Provider Name:Jasiel palacio Jr, 11/28/2025 10:40:00 AM, [address], [address], [place], [address], Progress Notes * GERARD GARCIADOB: [birth year] (74 yo F)Acc No.[id number]:01/31/2025 Progress Notes Patient: GERARD REID Provider: Tiffanie Coburn MD :1950 A ge:74 Y S ex:Female Date:01/31/2025 Address:[address] [place], [place] [id number] Pcp:Kathy Pryor MD Subjective: * Chief Complaints: * 1 . Acid reflux. * Medical History: Objective: * Vitals: Assessment: Plan: * Treatment: * * The named appointment provid er may or may not be the originator of this progress note, and it is not deemed complete until electronically signed by the appointment provider. Sign off status: Pending * Provider: Tiffanie Coburn MD Date: 01/31/2025 Generated for Ce vargas/Nohemy/Brendaitting on: 0 05/26/2025 10:42 AM EDT
--- OUTSIDE RECORDS SUMMARY | 2025-05-26 10:41 | XMS_ITS | Encounter Summary ---
Author Organization [employer] Address [address] 7t [place] [address] Care Team Providers Care Technical Sales Associate Name Role Phone Kathy Pryor MD Primary Care Provider + Encounter Details Date Type Department Care Team (Late st Contact Info) Description 01/28/2024 Orders Only [facility] MEDICINE [address] [place], [place] [phone] ProviderSebastian MD Social History Tobacco Use Types Packs/Day Years Used Date Smoking Tobacco: Never Smokeless Tobacco: Never Alcohol Use Standard Drinks/Week Comments Never 0 (1 standard drink = 0.6 oz pur e alcohol) Housing Stability Answer Date Recorded What is your housing situation today? I have ritabenjamin casey 07/26/[address] you [...] Care Team (Late st Contact Info) Description 06/01/2025 9:15 AM EDT Office Visit [facility] MEDICINE [address] [place] [address] Kathy Pryor MD [address] [place] [address] 09/21/2025 10:00 AM EST Office Visit [facility] OPTOMETRY [address] [place], [place] [phone] Daija Cardenas, OD 230 [place] [address] documented as of this encounter Procedures Procedure Name Priority Date/Time Associated Diagnosis Comments HM COLONOSCOPY Routine 11/13/2018 7:12 AM EST documented in this encounter Results * Hm Colonoscopy (11/13/2018 7:12 AM EST) Historical Provider HEALTH MAINTENANCE Final Result documented in this encounter Visit Diagnoses Not on filedocumented in this encounter Care Teams Technical Sales Associate Relationship Specialty Start Date End Date Kathy Pryor MD 230 [place], [place] [phone] PCP - General Family Medicine 06/28/16 documented as of this encounter
--- OUTSIDE RECORDS SUMMARY | 2025-05-26 10:41 | XMS_ITS | Encounter Summary ---
Author Organization [employer] Address [address] [facility] 7t [place] [address] Care Team Providers Care Potato Chip Cooker Machine Name Role Phone Kathy Pryor MD Primary Care Provider + Encounter Details Date Type Department Care Team (Latest Contact Info) Description 11/24/2019 Abstract [facility] Dental, Provider, DDS Social History Tobacco [...] Description 06/01/2025 9:15 AM EDT Office Visit [facility] MEDICINE 230 [place] [address] Kathy Pryor MD [address] [place] [address] 09/21/2025 10:00 AM EST Office Visit [facility] OPTOMETRY [address] [place] [address] Daija Cardenas, OD 230 [place] [address] documented as of this encounter Visit Diagnoses Not on filedocumented in this encounter Care Teams Potato Chip Cooker Machine Relationship Specialty Start Date End Date Kathy Pryor MD 230 [place] [address] PCP - General Family Medicine 06/28/16 documented as of this encounter
--- OUTSIDE RECORDS SUMMARY | 2025-05-26 10:41 | XMS_ITS | Encounter Summary ---
Author Organization [employer] Address [address] [facility] 7t [place] [address] Care Team Providers Care Chief Of Vital Statistics Name Role Phone Kathy Pryor MD Primary Care Provider + Reason for Visit * Reason Onset Date Comments Durable Medical Equipment 02/05/2024 Encounter Details Date Type Department Care Team ([facility] st Contact Info) Description 02/05/2024 Telephone [facility] MEDICINE [address] [place], [place] [phone] Kathy Pryor MD [address] [place] [address] Durable Medical Equipment Social History Tobacco Use [...] any questions you can contact pt at [phone]. documented in this encounter Plan of Treatment Upcoming Encounters Date Type Department Care Team (Late st Contact Info) Description 06/01/2025 9:15 AM EDT Office Visit [facility] MEDICINE [address] [place] [address] Kathy Pryor MD [address] [place] [address] 09/21/2025 10:00 AM EST Office Visit [facility] OPTOMETRY [address] [place] [address] Ronald, Daija, OD 230 [place] [address] documented as of this encounter Visit Diagnoses Not on filedocumented in this encounter Care Teams Chief Of Vital Statistics Relationship Specialty Start Date End Date Kathy Pryor MD [address] [place] [address] PCP - General Family Medicine 06/28/16 documented as of this encounter
--- OUTSIDE RECORDS SUMMARY | 2025-05-26 10:41 | XMS_ITS | Patient Health Record ---
Author Organization [facility] [facility] Address [address] [place] [address] Care Team Providers Care Entry Clerk Name Role Phone Konstantin CHRISTINA, Kathy Primary Care Provider Unavail able Jasiel Coburn Jr Unavailable [phone] Allergies No Known Allergies Reason For Referral No Information Medications Medication SIG (Take, Route, Frequency, Duration) Notes Start Date End Date Status Omeprazole 20 MG 1 capsule 1/2 to 1 h our before morning meal Orally twice a day Active Atorvastatin Calcium 40 MG 1 tablet Oral ly Once a day Active Vitamin D3 1000 UNIT 1 tablet Orally Onc e a day Active Ibuprofen Active Alendronate Sodium A ctive Lisinopril Active Vitamin D (Ergocalciferol) Active Immunizations Vaccine Route Administration Date Status Comme nts Influenza Unknown 05/26/2018 Administered Influenza Unknown 06/28/2020 Administered Influenza Unknown 08/01/2021 Administered Influenza Unknown 06/04/2022 Administered Influenza Unknown 07/06/2024 Administered Problems Problem Type SNOMED Code ICD Code Onset Dates Problem Status W/U Status Risk Notes Problem 636832460 Colon cancer screening (Z12.11) Active confirmed Problem 009166230 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) Active confirmed Problem [id number] Gastroesophageal reflux disease without esophagitis (K21.9) Active confirmed Vital Signs Temperature 97.9 degrees Fahrenheit 11/24/2024 Blood pressure diastolic 01 mm Hg 11/24/2024 Height 61 in 11/24/2024 Blood pressure systolic 001 mm Hg 11/24/2024 Weight 155.6 lbs 11/24/2024 BMI 29.4 kg/m2 11/24/2024 Encounters Encounter Location Date Provider Diagnosis [facility] [address] [place] [address] 11/24/2024 Jasiel Almas Jr Hill's esophagus without dysplasia K22.70 and Colon cancer screening Z12.11 [facility] [address] [facility] [address] [place] [phone] 07/19/2024 Jasiel Almas Jr [facility] [address] [address] 10/18/2024 Jasiel Paulceasar Couch Assessments Encounter Date Diagnosis (ICD Code) Assessment Notes Treatment Notes Treatment Clinical Notes Section Notes 11/24/2024 Hill's esophagus without dysplasia (ICD-10 - K22.70) Hill esophagus material was printed She is doing well. We discussed gastroesophageal reflux disease and Hill's esophagus today. We discussed diet, lifestyle modifications, and weight management regarding the treatment of reflux. She will continue omeprazole. She is up-to-date on screening for Hill's esophagus and colorectal cancer screening as well. We discussed this today. 11/24/2024 Colon cancer screening (ICD-10 - Z12.11) She is doing well. We discussed gastroesophageal reflux disease and Hill's esophagus today. We discussed diet, lifestyle modifications, and weight management regarding the treatment of reflux. She will continue omeprazole. She is up-to-date on screening for Hill's esophagus and colorectal cancer screening as well. We discussed this today. Plan Of Treatment Future Test Test Name Order Date UPPER GI ENDOSCOPY 02/06/2012 UPPER GI ENDOSCOPY 07/21/2015 COLONOSCOPY 07/31/2018 UPPER GI ENDOSCOPY 11/29/2020 Next Appt Details Provider Name:Jasiel palacio Jr, 11/28/2025 10:40:00 AM, [address] [place] [address], [address], [place], [address], Insurance Providers Payer Name Payer Address Payer Phone Subscriber Number Group Number Insured Name Patient Relationship to Insured Coverage Start Date Coverage End Date [facility] [address] [place] [address] [id number] GERARD CAVAZOS Self - patient is the insured Medical (General) History Medical History History ICD Code elevated cholesterol Hill's esophagus last EGD , 12/03, 2 cm length of Hill's without recent lesions or ulcerated areas, no dysplasia on biopsies, further EGD optional based on age spastic bladder depression hypertension osteoporosis colonoscopy 11/13/18, diverticulosis, ten- year followup 12/11 Surgical History Surgery Date(Month/Year) tubal ligation
--- OUTSIDE RECORDS SUMMARY | 2025-05-26 10:41 | XMS_ITS | Encounter Summary ---
Author Organization [employer] Address [address] [facility] 7t [place] [address] Care Team Providers Care Mini Lab Operator Name Role Phone Kathy Pryor MD Primary Care Provider + Encounter Details Date Type Department Care Team (Late st Contact Info) Description 01/07/2023 Orders Only [facility] MEDICINE [address] [place] [address] Kathy Pryor MD [address] [place] [address] Essential hypertension (Primary Dx); Prediabetes; Vitamin D [...] Description 06/01/2025 9:15 AM EDT Office Visit [facility] MEDICINE [address] [place] [address] Kathy Pryor MD [address] [place] [address] 09/21/2025 10:00 AM EST Office Visit [facility] OPTOMETRY [address] [place], [place] [phone] Daija Cardenas, OD [address] [place] [address] documented as of this encounter Procedures Procedure [...] Total, IA 26(L) 30 - 100 ng/mL [facility] Comment: Vitamin D Status 25-OH Vitamin D: Deficiency: <20 ng/mL Insufficiency: 20 - 29 ng/mL Optimal: > or = 30 ng/mL For 25-OH Vitamin D testing on patients on D2-supplementation and patients for whom quantitation of D2 and D3 fractions is required, the QuestAssureD(TM) 25-OH VIT D, (D2,D3), LC/MS/MS is recommended: order code 91266 (patients >2yrs). See Note 1 Note 1 For additional information, please refer to http://iGistics.Quality Practice/faq/YKR805 (This link is being provided for informational/ educational purposes only.) 01/08/2023 8:01 AM EDT 01/08/2023 8:01 AM EDT Narrative [facility] - 01/08/2023 7:26 PM EDT FASTING:YES FASTING: YES Kathy Pryor MD LAB BLOOD ORDERABLES Fin al Result [facility] [address], [place] [address] [facility] [address] [place] [address] * (ABNORMAL) Lipid Panel with Reflex to Direct LDL (01/08/2023 8:01 AM EDT) Cholesterol, Total 190 <200 mg/dL [facility] HDL Cholesterol 51 > OR = 50 mg/dL [facility] Triglycerides 131 <150 mg/dL [facility] [place] [facility] LDL Cholesterol 114(H) mg/dL (calc) [facility] Comment: Reference range: <100 Desirable range <100 mg/dL for primary prevention; <70 mg/dL for patients with CHD or diabetic patients with > or = 2 CHD risk factors. LDL-C is now calculated using the Dustin-Cata calculation, which is a validated novel method providing better accuracy than the Friedewald equation in the estimation of LDL-C. Dustin PITTMAN et al. ROSETTA. 2013;310(19): 4035-1255 (http://education.Quality Practice/faq/XUO325) Chol/HDLC Ratio 3.7 <5.0 (calc) [facility] Non-HDL Cholesterol 139(H) <130 mg/dL (calc) [facility] Comment: For patients with diabetes plus 1 major ASCVD risk factor, treating to a non-HDL-C goal of <100 mg/dL (LDL-C of <70 mg/dL) is considered a therapeutic option. 01/08/2023 8:01 AM EDT 01/08/2023 8:01 AM EDT Narrative [facility] - 01/08/2023 7:26 PM EDT FASTING:YES FASTING: YES Kathy Pryor MD LAB BLOOD ORDERABLES Fin al Result [facility] [address], [place] [address] [facility] [address] [place] [address] * (ABNORMAL) Basic Metabolic Panel (01/08/2023 8:01 AM EDT) Glucose 114(H) 65 - 99 mg/dL [facility] [place] [facility] Comment: Fasting reference interval For someone without known diabetes, a glucose value between 100 and 125 mg/dL is consistent with prediabetes and should be confirmed with a follow-up test. Urea Nitrogen (BUN) 21 7 - 25 mg/dL [facility] [place] [facility] Creatinine, Serum 0.64 0.60 - 1.00 mg/dL [facility] [place] [facility] eGFR 93 > OR = 60 mL/min/1 .73m2 [facility] [place] [facility] Comment: The eGFR is based on the CKD-EPI 2020 equation. To calculate the new eGFR from a previous Creatinine or Cystatin C result, go to https://www.kidney.org/professionals/ kdoqi/gfr%5Fcalculator BUN/Creatinine Ratio NOT APPLICABLE 6 - 22 (calc) [facility] [place] [facility] Sodium 140 135 - 146 mmol/L [facility] [place] [facility] Potassium 3.8 3.5 - 5.3 mmol/L [facility] [place] [facility] [facility] Chloride 105 98 - 110 mmol/L [facility] [place] [facility] Carbon Dioxide 27 20 - 32 mmol/L [facility] Calcium 9.0 8.6 - 10.4 mg/dL [facility] [facility] Blood Venous blood specimen / Unknown 01/08/2023 8:01 AM EDT 01/08/2023 8:01 AM EDT Narrative [facility] - 01/08/2023 7:26 PM EDT FASTING:YES FASTING: YES us Kathy Pryor MD LAB BLOOD ORDERABLES Fin al Result [facility] [address], [place] [address] [facility] [address] [place] [address] documented in this encounter Visit Diagnoses Diagnosis Essential hypertension- Primary Unspecified essential hypertension Prediabetes Other abnormal glucose Vitamin D deficiency documented in this encounter Care Teams Mini Lab Operator Relationship Specialty Start Date End Date Kathy Pryor MD [address] [place] [address] PCP - General Family Medicine 06/28/16 documented as of this encounter
--- OUTSIDE RECORDS SUMMARY | 2025-05-26 10:41 | XMS_ITS | Encounter Summary ---
Author Organization [employer] Address [address] [facility] 7t [place] [address] Care Team Providers Care Sparmaker Name Role Phone Kathy Pryor MD Primary Care Provider + Encounter Details Date Type Department Care Team (Latest Contact Info) Description 05/25/2019 Abstract [facility] CONVERSIONS Dental, Provider, DDS Social History [...] Description 06/01/2025 9:15 AM EDT Office Visit [facility] MEDICINE [address] [place] [address] Kathy Pryor MD [address] [place] [address] 09/21/2025 10:00 AM EST Office Visit [facility] OPTOMETRY [address] [place] [address] Daija Cardenas, OD [address] [place] [address] documented as of this encounter Visit Diagnoses Not on filedocumented in this encounter Care Teams Sparmaker Relationship Specialty Start Date End Date Kathy Pryor MD [address] [place] [address] PCP - General Family Medicine 06/28/16 documented as of this encounter
--- OUTSIDE RECORDS SUMMARY | 2025-05-26 10:41 | XMS_ITS | Clinical Summary ---
Author Organization [employer] Address [address] [facility] 7t [place] [address] Care Team Providers Care Bit Grinder Name Role Phone Kathy Pryor MD Primary Care Provider + Allergies No known active allergies Medications Calcium Carb-Cholecalcife rol (Oyster Shell Calcium w/D) 500-5 MG-MCG tabletIndications :Age related osteoporosis, unspecified pathological fracture presence TAKE 1 TABLET BY MOUTH TWICE DAILY 180 tablet 1 4 Active cholecalciferol VITAMIN D (Vitamin D-3) 50 MCG (1999 UT) tablet Take 1 tablet (50 mcg) by mouth Once per day. 90 tablet 1 5 Active lisinopril 40 MG tabletIndications :Primary hypertension TAKE 1 TABLET BY MOUTH EVERY DAY 90 tablet 3 5 Active atorvastatin (Lipitor) 40 MG tablet TAKE 1 TABLET BY MOUTH AT BEDTIME 90 tablet 3 5 Active omeprazole (PriLOSEC) [address] capsuleIndication [...] Encounters Date Type Department Care Team Description 03/17/2025 Telephone [facility] MEDICINE [address] [place] [address] Kathy Pryor MD May03/16/2025 Refill [facility] MEDICINE [address] [place] [address] Kathy Pryor MD Gastroesophageal reflux disease, unspecified whether esophagitis present from Last 3 Months Immunizations Immunization Administration Dates Next Due Hep B, adult [...] housing situation today? I have ritabenjamin casey 03/08/[address] you [...] 91 11/17/2024 11:12 AM EST Temperature 35.9 C (96.6 F) 11/17/2024 11:12 AM EST Respiratory Rate 16 11/17/2024 11:12 AM EST Oxygen Saturation 95% 11/17/2024 11:12 AM EST Inhaled Oxygen Concentration - - Weight 71.2 kg (157 lb) 11/17/2024 11:12 AM EST Height 157.5 cm (5' 2 ) 11/17/2024 11:12 AM EST Body Mass Index 28.72 11/17/2024 11:12 AM EST Plan of Treatment Upcoming Encounters Date Type Department Care Team (Late st Contact Info) Description 06/01/2025 9:15 AM EDT Office Visit [facility] MEDICINE [address] [place] [address] Kathy Pryor MD [address] [place] [address] 09/21/2025 10:00 AM EST Office Visit [facility] OPTOMETRY [address] [place] [address] Daija Cardenas, OD 230 [place] [address] Health Maintenance Due Date Last Done Comments CT Colonography 1949 FIT DNA/Cologuard 1949 FIT 1949 FOBT 1950 Sigmoidoscopy 1949 Alcohol/Substance Use Screening 1961 Hepatitis C Screening 12/19/1967 RSV Patients and Patients Aged 60 years or older (1 - 1-dose 75+ series) 2024 Depression Screening 03/08/2025 03/08/2024, 03/08/20 COVID-19 Vaccine (2024- season) 2025 06/17/2022, 01/29/2022, 07/30/2021, Additional history exists Influenza Vaccine (#1) 2025 , 06/17/2023, 06/16/2022, Additional history exists SDOH Screening 11/05/2025 11/05/2024 Diabetes: Hemoglobin A1C 11/17/2025 025, 09/25/2023, 01/03/2023, Additional history exists Tobacco Screening 11/17/2025 11/17/2024 Lipid Panel 10/27/2028 10/27/2023, 12/15, 03/20/2021 Colonoscopy 11/13/2028 11/13/2018, 06/03/2008 Colorectal Cancer Screening 11/13/2028 DTaP/Tdap/Td Vaccines (3 - Td or Tdap) 02/06/2033 02/06/2023, 02/12/2012, 04/27/2007 Hepatitis B Vaccines Completed 06/14/2008, 02/17/2008, 01/18/2008 Pneumococcal Vaccine: 50+ Years Completed 12/05/2022, 10/08/2016 Zoster Vaccines Completed 02/06/2023, 11/14, 10/12/2018 HIB Vaccines Aged Out No longer eligi [...] patient's age to complete this topic Meningococcal B Vaccine Aged Out No l onger eligible based on patient's age to complete [...] TOTAL Routine 11/17/2024 11:47 AM EST Prediabetes LIPID PANEL WITH REFLEX TO DIRECT LDL [...] ENTER /EDIT ORDERABLES Final Result * (ABNORMAL) Lipid Panel with Reflex to Direct LDL (10/27/2023 9:08 AM EST) Triglycerides 163(H) <150 mg/dL [facility] Comment:Desirable Triglyceri de: less than 150 mg/dLBorderline High Triglyceride 150-199 mg/dLHigh Triglyceride: 200-499 mg/dLVery High Triglyceride: greater than or equal to 5OO mg/dL Cholesterol 174 <200 mg/dL [facility] Comment:Desirable Cholestero l: less than 200 mg/dLBorderline High Cholesterol: 200-239 mg/dLHigh Cholesterol: greater than 239 mg/dL LDL Cholesterol Calculated 94 <100 mg/dL [facility] Comment:Desirable LDL: less than 100 mg/dLNear Optimal/Above Optimal LDL: 110- 129 mg/dLBorderline High LDL: 130-159 mg/dLHigh LDL: 160-189 mg/dLVery High LDL: greater than or equal to 190 mg/dL HDL Cholesterol 48 >40 mg/dL [facility] Comment:Desirable HDL: great er than 40 mg/dL Note: This HDL assay may give artificially low results in patients with liver disease. Blood 10/27/2023 9:08 AM EST 10/27/2023 11:34 AM EST us Kathy Pryor MD LAB BLOOD ORDERABLES Fin al Result [facility] [address] [place] [address] [phone] * Colonoscopy (11/13/2018 7:12 AM EST) us Historical Provider HEALTH MAINTENANCE Final Result from Last 3 Months or Most Recently Relevant to Health Maintenance Insurance [facility]IC[facility] [employer] Care Teams Bit Grinder Relationship Specialty Start Date End Date Kathy Pryor MD [address] [place] [phone] PCP - General Family Medicine 06/28/16
--- OUTSIDE RECORDS SUMMARY | 2025-05-26 10:41 | XMS_ITS | Encounter Summary ---
Author Organization [employer] Address [address] [facility] 7t [place] [address] Care Team Providers Care Sales Service Technician Name Role Phone Kathy Pryor MD Primary Care Provider + Reason for Visit * Reason Comments Med Refill Encounter Details Date Type Department Care Team (Late Contact Info) Description 10/17/2022 Refill [facility] MEDICINE [address] [place] [address] Kathy Pyror MD [address] [place], [place] [phone] Social History Tobacco Use Types Packs/Day Years [...] Department Care Team (Late Contact Info) Description 06/01/2025 9:15 AM EDT Office Visit [facility] MEDICINE [address] [place] [address] Kathy Pryor MD [address] [place], [place] [phone] 09/21/2025 10:00 AM EST Office Visit [facility] OPTOMETRY [address] [place], [place] [phone] Daija Cardenas, OD [address] [place], [place] [phone] documented as of this encounter Visit Diagnoses Not on filedocumented in this encounter Care Teams Sales Service Technician Relationship Specialty Start Date End Date Kathy Pryor MD [address] [place] [phone] PCP - General Family Medicine 06/28/16 documented as of this encounter
--- OUTSIDE RECORDS SUMMARY | 2025-05-26 10:41 | XMS_ITS | Encounter Summary ---
Author Organization [employer] [facility] Address [address] [facility] 7t [place] [address] Care Team Providers Care Mixologist Name Role Phone Kathy Pryor MD Primary Care Provider + Encounter Details Date Type Department Care Team (Late st Contact Info) Description 09/26/2022 Orders Only [facility] MEDICINE [address] [place] [address] Lenora Norman LPN Social History Tobacco Use [...] Description 06/01/2025 9:15 AM EDT Office Visit [facility] MEDICINE [address] [place] [address] Kathy Pryor MD [address] [place] [address] 09/21/2025 10:00 AM EST Office Visit [facility] OPTOMETRY [address] [place] [address] Daija Cardenas, OD [address] [place] [address] documented as of this encounter Visit Diagnoses Not on filedocumented in this encounter Care Teams Mixologist Relationship Specialty Start Date End Date Kathy Pryor MD [address] [place] [address] PCP - General Family Medicine 06/28/16 documented as of this encounter
--- OUTSIDE RECORDS SUMMARY | 2025-05-26 10:41 | XMS_ITS | Encounter Summary ---
Author Organization [employer] Address [address] [facility] 7t [place] [address] Care Team Providers Care Lithostripper Name Role Phone Kathy Pryor MD Primary Care Provider + Encounter Details Date Type Department Care Team (Late Contact Info) Description 03/05/2023 Abstract [facility] MEDICINE [address] [place], [place] [phone] Kathy Pryor MD [address] [place] [phone] Social History Tobacco Use Types Packs/Day Years [...] Upcoming Encounters Date Type Department Care Team ([facility] Contact Info) Description 06/01/2025 9:15 AM EDT Office Visit [facility] MEDICINE [address] [place] [phone] Kathy Pryor MD [address] [place], [place] [phone] 09/21/2025 10:00 AM EST Office Visit [facility] OPTOMETRY [address] [place], [place] [phone] Ronald Daija, OD [address] [place] [address] documented as of this encounter Procedures Procedure Name Priority Date/Time Associated Diagnosis Comments HM COLONOSCOPY Routine 06/03/2008 10:00 AM EDT documented in this encounter Results * Hm Colonoscopy (06/03/2008 10:00 AM EDT) Colonoscopy Normal Normal Narrative Janice Albarado - 06/03/2008 10:00 AM EDT Recommended 10 year follow up us Historical Provider [facility] MAINTENANCE Edited Result - Final documented in this encounter Visit Diagnoses Not on filedocumented in this encounter Care Teams Lithostripper Relationship Specialty Start Date End Date Kathy Pryor MD [address] [place] [address] PCP - General Family Medicine 06/28/16 documented as of this encounter
[2025-05-26 12:09] LABS: Anion Gap 12 (12-20); Blood Urea Nitrogen 22 mg/dL (9-16); Calcium 9.1 mg/dL (8.4-10.2); Carbon Dioxide 27 mmol/L (22-29); Chloride 107 mmol/L (96-108); Estimated Glomerular Filt Rate > 60; Potassium 4.2 mmol/L (3.3-5.1); Sodium 142 mmol/L (135-145)
[2025-05-26 12:18] LABS: Parathyroid Hormone Intact 59.0 pg/mL (8.7-77.1)
== END 2025-05-26 09:17 | disposition home or self-care (01) ==
LOC: HO.HHCL 09:16
PROVIDERS: PCP Internal Medicine; Visit Provider Internal Medicine
DX: M85.50 Aneurysmal bone cyst, unspecified site (principal); E55.9 Vitamin D deficiency, unspecified
CPT/HCPCS: 36415; 80048; 82306; 83970